=== PATIENT | female | born 1960 | race Caucasian/White ===

== ENCOUNTER 2020-02-24 20:32 | Emergency (ER) | payer OTHER ==
[~2020-02-24 20:32] MED LIST: CEPH500C PO; DAPS25TA2 PO
[2020-03-03] MEDS ORDERED: CEFD300C3 PO (11:09)
[2020-03-03] MEDS ORDERED: PRED10TA22 PO (11:09)
== END 2020-02-24 20:49 | disposition left against medical advice (07) ==
LOC: EDUNIT# 20:32 → ER 20:33
DX: R07.9 Chest pain, unspecified (principal); R03.0 Elevated blood-pressure reading, without diagnosis of hypertension

== ENCOUNTER 2020-03-02 14:38 | Inpatient (IN) | payer SELFPAY ==
[~2020-03-02] VITALS: Ht 167.7 cm; Wt 85.9 kg
[2020-03-02] MEDS ORDERED: RT-ALBUTEROL/IPRATROPIUM 3 ML (DUONEB) VIAL INH ONE (14:45)
--- NOTE | 2020-03-02 14:48 | ED Chest Pain ---
General Stated Complaint: CHEST PAIN Source: patient Exam Limitations: no limitations History of Present Illness Date Seen by Provider: Mar 02, 2020 Time Seen by Provider: 14:45 Initial Comments To ER with c/o chest pain and shortness of breath. SOB began this morning. She then developed chest pain and diaphoresis and anxiety. Has a history of NON oxygen dependent COPD, very heavy smoker. Ems arrived, BP 180 systolic and rated chest pain 8/10. Gave 4 baby aspirin and 1 sl nitro which resolved the chest pain. Initial room air O2 sat mid 90% range. Also reports some epigastric abdominal pain ongoing for a few weeks that prevents her from being able take a deep breath. Timing/Duration: changing over time Severity/Quality: moderate Location: central Radiation: no radiation Activities at Onset: none ASA po MARINE STEAM FITTER: No NTG SL MARINE STEAM FITTER: No Associated Symptoms: No fever/chills; shortness of breath Allergies and Home Medications Allergies Coded Allergies: No Known Drug Allergies (Unverified , 03/02/20) Home Medications Cephalexin 500 Mg Capsule, 500 MG PO TID Prescribed by: CARLOS DAVID on 04/30/162031 Dapsone 25 Mg Tablet, 50 MG PO BID Prescribed by: CARLOS DAVID on 04/30/162031 Patient Home Medication List Home Medication List Reviewed: Yes Review of Systems Review of Systems Constitutional: see HPI; No chills, No fever EENTM: No Symptoms Reported Respiratory: See HPI; Denies Cough; Shortness of Air, Wheezing Cardiovascular: See HPI, Chest Pain Gastrointestinal: No Symptoms Reported Genitourinary: No Symptoms Reported Musculoskeletal: no symptoms reported Skin: no symptoms reported Psychiatric/Neurological: No Symptoms Reported Endocrine: No Symptoms Reported Hematologic/Lymphatic: No Symptoms Reported Past Gjlqitd-Ufmcru-Hubnrf Hx Patient Social History Recent Hopitalizations: No Past Medical History Reproductive Disorders: No Family Medical History No Pertinent Family Hx Physical Exam Vital Signs Vital Signs - First Documented 03/02/20 14:38 Temp 36.8 Pulse 85 Resp 14 B/P (MAP) 139/104 (116) Pulse Ox 99 O2 Delivery Nasal Cannula O2 Flow Rate 5.0 Capillary Refill : Height, Weight, BMI Height: 5'6" Weight: 88lbs. 9oz. 40.258804mt; BMI Method:Stated General Appearance: No Apparent Distress, WD/WN, Chronically ill, Thin HEENT: PERRL/EOMI, TMs Normal Neck: Full Range of Motion, Normal Inspection Respiratory: No Accessory Muscle Use, No Respiratory Distress, Decreased Breath Sounds, Wheezing Cardiovascular: Regular Rate, Rhythm, Normal Peripheral Pulses Gastrointestinal: Normal Bowel Sounds, Soft, Tenderness (epigastric) Neurologic/Psychiatric: Alert, Oriented x3 Skin: Normal Color, Warm/Dry Other comments Still no chest pain here. Progress/Results/Core Measures Results/Orders Lab Results Laboratory Tests Test 03/02/20 14:48 03/02/20 15:38 Range/Units White Blood Count 8.5 4.3-11.0 10^3/uL Red Blood Count 5.79 4.35-5.85 10^6/uL Hemoglobin 19.9 H 11.5-16.0 G/DL Hematocrit 55 H 35-52 % Mean Corpuscular Volume 95 80-99 FL Mean Corpuscular Hemoglobin 34 25-34 PG Mean Corpuscular Hemoglobin Concent 36 32-36 G/DL Red Cell Distribution Width 12.8 10.0-14.5 % Platelet Count 277 130-400 10^3/uL Mean Platelet Volume 9.3 7.4-10.4 FL Neutrophils (%) (Auto) 74 42-75 % Lymphocytes (%) (Auto) 12 12-44 % Monocytes (%) (Auto) 13 H 0-12 % Eosinophils (%) (Auto) 0 0-10 % Basophils (%) (Auto) 1 0-10 % Neutrophils # (Auto) 6.3 1.8-7.8 X 10^3 Lymphocytes # (Auto) 1.0 1.0-4.0 X 10^3 Monocytes # (Auto) 1.1 H 0.0-1.0 X 10^3 Eosinophils # (Auto) 0.0 0.0-0.3 10^3/uL Basophils # (Auto) 0.1 0.0-0.1 10^3/uL Prothrombin Time 13.6 12.2-14.7 SEC INR Comment 1.0 0.8-1.4 Activated Partial Thromboplast Time 29 24-35 SEC Sodium Level 117 *L 135-145 MMOL/L Potassium Level 5.2 H 3.6-5.0 MMOL/L Chloride Level 82 L 98-107 MMOL/L Carbon Dioxide Level 25 21-32 MMOL/L Anion Gap 10 5-14 MMOL/L Blood Urea Nitrogen 8 7-18 MG/DL Creatinine 0.57 L 0.60-1.30 MG/DL Estimat Glomerular Filtration Rate > 60 BUN/Creatinine Ratio 14 Glucose Level 121 H 70-105 MG/DL Calcium Level 8.5 8.5-10.1 MG/DL Corrected Calcium 8.7 8.5-10.1 MG/DL Magnesium Level 1.7 1.6-2.4 MG/DL Total Bilirubin 1.2 H 0.1-1.0 MG/DL Aspartate Amino Transf (AST/SGOT) 26 5-34 U/L Alanine Aminotransferase (ALT/SGPT) 28 0-55 U/L Alkaline Phosphatase 103 40-136 U/L Myoglobin 46.0 10.0-92.0 NG/ML Troponin I < 0.028 <0.028 NG/ML Total Protein 6.4 6.4-8.2 GM/DL Albumin 3.8 3.2-4.5 GM/DL Lipase 18 8-78 U/L Blood Gas Puncture Site R RAD Blood Gas Patient Temperature 37.1 Arterial Blood pH 7.44 H 7.37-7.43 Arterial Blood Partial Pressure CO2 38 35-45 MMHG Arterial Blood Partial Pressure O2 86 79-93 MMHG Arterial Blood HCO3 25 23-27 MMOL/L Arterial Blood Total CO2 26.5 21.0-31.0 MMOL/L Arterial Blood Oxygen Saturation 97 94-100 % Arterial Blood Base Excess 1.7 -2.5-2.5 MMOL/L Daniel Test YES-POS Blood Gas Ventilator Setting NO Blood Gas Inspired Oxygen 2L My Orders Orders - SEBASTIÁN FIGUEROA APRN Cbc With Automated Diff (03/02/20 14:44) Magnesium (03/02/20 14:44) Chest 1 View, Ap/Pa Only (03/02/20 14:44) Ekg Tracing (03/02/20 14:44) Comprehensive Metabolic Panel (03/02/20 14:44) Myoglobin Serum (03/02/20 14:44) Protime With Inr (03/02/20 14:44) Partial Thromboplastin Time (03/02/20 14:44) O2 (03/02/20 14:44) Monitor-Rhythm Ecg Trace Only (03/02/20 14:44) Lipid Panel (03/03/20 06:00) Ed Iv/Invasive Line Start (03/02/20 14:44) Troponin I (03/02/20 14:44) Albuterol/Ipra Inhalation Soln (Duoneb I (03/02/20 14:45) Svn Small Volume Nebulizer (03/02/20 14:44) Methylprednisolone Sod Succ (Solu-Medrol (03/02/20 15:30) Arterial Blood Gas (03/02/20 15:39) Fentanyl Injection (Sublimaze Injection (03/02/20 15:45) Lipase (03/02/20 15:39) Ct Abdomen/Pelvis W (03/02/20 15:39) Sodium Urine Random (03/02/20 15:47) Osmolality Urine (03/02/20 15:47) Ua Culture If Indicated (03/02/20 15:47) Iohexol Injection (Omnipaque 350 Mg/Ml 1 (03/02/20 16:00) Received Contrast (Hold Metformin- Contr (03/02/20 16:00) Ns (Ivpb) (Sodium Chloride 0.9% Ivpb Bag (03/02/20 16:00) Ondansetron Injection (Zofran Injectio (03/02/20 16:15) Ondansetron Injection (Zofran Injectio (03/02/20 16:02) Promethazine Injection (Phenergan Injec (03/02/20 16:45) Medications Given in ED Current Medications Medications Dose Ordered Sig/Mark Route Start Time Stop Time Status Last Admin Dose Admin Albuterol/ Ipratropium 3 ml ONCE ONCE INH 03/02/20 14:45 03/02/20 14:46 DC 03/02/20 15:04 3 ML Fentanyl Citrate 50 mcg ONCE ONCE IVP 03/02/20 15:45 03/02/20 15:46 DC 03/02/20 16:06 50 MCG Iohexol 100 ml ONCE ONCE IV 03/02/20 16:00 03/02/20 16:02 DC 03/02/20 16:25 66 ML Methylprednisolone Sodium Succinate 125 mg ONCE ONCE IVP 03/02/20 15:30 03/02/20 15:31 DC 03/02/20 15:37 125 MG Ondansetron HCl 8 mg ONCE ONCE IVP 03/02/20 16:15 03/02/20 16:16 DC 03/02/20 16:06 8 MG Promethazine HCl 12.5 mg ONCE ONCE IVP 03/02/20 16:45 03/02/20 16:46 DC 03/02/20 16:48 12.5 MG Sodium Chloride 100 ml ONCE ONCE IV 03/02/20 16:00 03/02/20 16:02 DC 03/02/20 16:25 80 ML Vital Signs/I&O 03/02/20 03/02/20 03/02/20 03/02/20 14:38 14:38 14:38 15:04 Temp 36.8 Pulse 85 Resp 14 B/P (MAP) 139/104 (116) Pulse Ox 99 99 99 O2 Delivery Nasal Cannula Nasal Cannula Nasal Cannula Nasal Cannula O2 Flow Rate 5.0 5.00 5.00 5.00 03/02/20 15:12 Pulse Ox 97 O2 Delivery Room Air O2 Flow Rate 0 Departure Communication (Admissions) Time/Spoke to Admitting Phy: 16:[address] Harris, will admit, fluid restricted, IV normal saline, consult to surgery for the epigastric pain. Impression Primary Impression: COPD exacerbation Additional Impressions: Upper abdominal pain Hyponatremia Disposition: ADMITTED INPATIENT Condition: Stable Admissions Decision to Admit Reason: Admit from ER (General) Decision to Admit/Date: Mar 02, 2020 Time/Decision to Admit Time: 16:02 Departure-Patient Inst. Referrals: JANET HINES MD (PCP/Family) Primary Care Physician SEBASTIÁN FIGUEROA APRN Mar 02, 2020 14:47
[2020-03-02 15:03] LABS: BASOPHILS # (AUTO) 0.1 10^3/uL (0.0-0.1); BASOPHILS % (AUTO) 1 % (0-10); EOSINOPHILS % (AUTO) 0 % (0-10); HEMATOCRIT 55 % (35-52); HEMOGLOBIN 19.9 G/DL (11.5-16.0); LYMPHOCYTES % (AUTO) 12 % (12-44); MEAN CORPUSCULAR HEMOGLOBIN 34 PG (25-34); MEAN CORPUSCULAR HGB CONC 36 G/DL (32-36); MEAN CORPUSCULAR VOLUME 95 FL (80-99); MEAN PLATELET VOLUME 9.3 FL (7.4-10.4); MONOCYTES # (AUTO) 1.1 X 10^3 (0.0-1.0); MONOCYTES % (AUTO) 13 % (0-12); NEUTROPHILS # (AUTO) 6.3 X 10^3 (1.8-7.8); NEUTROPHILS % (AUTO) 74 % (42-75); PLATELET COUNT 277 10^3/uL (130-400); RED CELL DISTRIBUTION WIDTH 12.8 % (10.0-14.5); WHITE BLOOD COUNT 8.5 10^3/uL (4.3-11.0)
[2020-03-02 15:13] LABS: PROTHROMBIN TIME PATIENT 13.6 SEC (12.2-14.7)
[2020-03-02 15:27] LABS: ALANINE AMINOTRANSFERASE 28 U/L (0-55); ALBUMIN 3.8 GM/DL (3.2-4.5); ALKALINE PHOSPHATASE 103 U/L (40-136); BILIRUBIN,TOTAL 1.2 MG/DL (0.1-1.0); BUN/CREATININE RATIO 14; CALCIUM 8.5 MG/DL (8.5-10.1); CARBON DIOXIDE 25 MMOL/L (21-32); CHLORIDE 82 MMOL/L (98-107); CREATININE SERUM 0.57 MG/DL (0.60-1.30); GFR ESTIMATED > 60; GLUCOSE 121 MG/DL (70-105); MAGNESIUM 1.7 MG/DL (1.6-2.4); POTASSIUM 5.2 MMOL/L (3.6-5.0); TOTAL PROTEIN 6.4 GM/DL (6.4-8.2)
[2020-03-02] MEDS ORDERED: methylPREDNISolone 125 MG (Solu-MEDROL) VIAL IVP ONE (15:30)
[2020-03-02 15:31] LABS: SODIUM 117 MMOL/L (135-145)
[2020-03-02 15:44] LABS: ABG BASE EXCESS 1.7 MMOL/L (-2.5-2.5); ABG OXYGEN SATURATION 97 % (94-100); ABG PCO2 38 MMHG (35-45); ABG PH 7.44 (7.37-7.43); ABG PO2 86 MMHG (79-93); ABG TCO2 26.5 MMOL/L (21.0-31.0)
[2020-03-02 15:45] LABS: ALLENS TEST YES-POS; INSPIRED O2 2L; PATIENT TEMP 37.1; VENTILATOR NO
[2020-03-02] MEDS ORDERED: fentaNYL INJECTION 100 MCG/2 ML AMP IVP ONE (15:45)
--- NOTE | 2020-03-02 15:53 | Diagnostic Imaging Report ---
INDICATION: Chest pain. TIME OF EXAM: 3:27 PM. COMPARISON: No prior studies are available for comparison. FINDINGS: The heart size is normal. The lungs are hyperinflated, consistent with COPD. Nodular densities overlie the lung bases bilaterally, consistent with nipple shadows. No infiltrates are seen. There is no effusion or pneumothorax. IMPRESSION: COPD. No acute feature is detected. Dictated by: Dictated on workstation # [id number]
[2020-03-02] MEDS ORDERED: NS 100 ML (IVPB) BAG IV ONE (16:00)
[2020-03-02] MEDS ORDERED: IOHEXOL 350 MG/ML 100 ML (OMNIPAQUE 350) VIAL IV ONE (16:00)
[2020-03-02] MEDS ORDERED: HOLD METFORMIN - RECEIVED CONTRAST 20 ML VIAL IV SCH (16:00)
[2020-03-02] MEDS ORDERED: ONDANSETRON 4 MG/2 ML (SDV) Z0FRAN ONE (16:02)
[2020-03-02] MEDS ORDERED: ONDANSETRON 4 MG/2 ML (SDV) Z0FRAN IVP ONE (16:15)
[2020-03-02] MEDS ORDERED: PROMETHAZINE INJ 25 MG/ML (PHENERGAN) AMP IVP ONE (16:45)
--- NOTE | 2020-03-02 16:57 | Diagnostic Imaging Report ---
PROCEDURE: CT abdomen and pelvis with contrast. TECHNIQUE: Multiple contiguous axial images were obtained through the abdomen and pelvis after administration of intravenous contrast. Auto Exposure Controls were utilized during the CT exam to meet ALARA standards for radiation dose reduction. INDICATION: Epigastric abdominal pain, nausea, and vomiting. COMPARISON: None available. FINDINGS: LOWER THORAX: Emphysematous changes are noted in the visualized lung bases without acute or suspicious finding. The visualized heart is normal in size. LIVER: Normal. GALLBLADDER: Normal CT appearance. BILE DUCTS: No biliary ductal dilatation. SPLEEN: Normal. PANCREAS: Normal. No pancreatic ductal dilatation. ADRENAL GLANDS: No nodules. KIDNEYS AND URETERS: No hydronephrosis. Subcentimeter renal hypodensity, too small to characterize, but likely representing a cyst. The kidneys enhance symmetrically No suspicious mass. Mild cortical irregularity in both kidneys likely reflects areas of scarring. Punctate calcifications in the lower pole of the left kidney likely reflect renal vascular calcifications or punctate nonobstructing stones. STOMACH AND BOWEL: Stomach is physiologically-distended. No bowel obstruction. No inflammatory changes. APPENDIX: Not visualized. No pericecal inflammation. PELVIC ORGANS/BLADDER: Bladder is normal. Uterus is normal in CT appearance. No adnexal mass. PERITONEUM AND RETROPERITONEUM: No pneumoperitoneum. No abdominal free fluid or loculated collection. LYMPH NODES: No lymphadenopathy. VESSELS: Moderate atherosclerotic calcification. Abdominal aorta is nonaneurysmal. Incidental note is made of a retroaortic left renal vein, a normal anatomic variant. There is reflux of contrast into the hepatic veins, possibly reflecting right heart failure. ABDOMINAL WALL: Unremarkable. BONES: Multilevel degenerative changes involve the spine. No acute osseous abnormality. IMPRESSION: No acute abdominal or pelvic pathology. No findings to account for the patient's symptoms. Chronic and incidental findings are detailed above. Dictated by: Dictated on workstation # [id number]
--- NOTE | 2020-03-02 17:35 | NUR ---
Contacted daughter, Baylee, regarding pt report et admission to 507. Emmy voices no further questions or concerns at this time. ([phone])
[2020-03-02 17:54] VITALS: BP 118/81
[2020-03-02] MEDS ORDERED: PROMETHAZINE INJ 25 MG/ML (PHENERGAN) AMP IVP PRN (18:00)
[2020-03-02] MEDS ORDERED: fentaNYL INJECTION 100 MCG/2 ML AMP INJ PRN (18:00)
[2020-03-02] MEDS: NS IV 1000 ML 1,000 ML IV SCH (18:08)
[2020-03-02] MEDS: cefTRIAXone 1,000 MG/SWFI 10 ML IV PUSH IV SCH ×2 (18:10)
[2020-03-02] MEDS ORDERED: CATHETER FLUSH 10 ML SYR IV PRN (18:15)
[2020-03-02] MEDS ORDERED: fentaNYL INJECTION 100 MCG/2 ML AMP IV PRN (18:15)
[2020-03-02] MEDS ORDERED: ENOXAPARIN 30 MG/0.3 ML (LOVENOX) SYR SC SCH (19:04)
[2020-03-02 20:00] VITALS: BP 98/63
[2020-03-02] MEDS ORDERED: ONDANSETRON 4 MG (ZOFRAN) ORAL DISSOLVE TAB PO PRN (22:00)
[2020-03-02] MEDS ORDERED: ACETAMINOPHEN 500 MG TAB (TYLENOL) PO PRN (22:00)
[2020-03-02] MEDS ORDERED: LOPERAMIDE 2 MG (IMODIUM) TABLET PO PRN (22:00)
[2020-03-02] MEDS ORDERED: DOCUSATE SODIUM 100 MG (COLACE) CAP PO PRN (22:00)
[2020-03-02] MEDS ORDERED: ONDANSETRON 4 MG/2 ML (SDV) Z0FRAN IVP PRN (22:00)
[2020-03-02] MEDS ORDERED: CALCIUM CARBONATE 500 MG (TUMS) TAB.CHEW PO PRN (22:00)
[2020-03-02] MEDS ORDERED: diphenhydrAMINE 25 MG TAB (BENADRYL) PO PRN (22:00)
[2020-03-02] MEDS ORDERED: MELATONIN 3 MG TABLET PO PRN (22:00)
[2020-03-02] MEDS ORDERED: LACTULOSE SYRUP 10GM/15ML (ENULOSE) 30ML UDC PO PRN (22:00)
[2020-03-02] MEDS ORDERED: ALPRAZolam 0.25 MG (XANAX) TAB PO PRN (22:00)
[2020-03-02] MEDS ORDERED: HYDROcodone/APAP 5 MG/325 MG (LORTAB) TAB PO PRN (22:00)
[2020-03-02] MEDS ORDERED: BISACODYL 10 MG SUPP (DULCOLAX) PR PRN (22:00)
--- NOTE | 2020-03-02 22:07 | CONSULTATION REPORT ---
DATE OF SERVICE: 03/02/2020 ATTENDING PRIMARY CARE PHYSICIAN: Cesario Fritz MD ADMITTING PHYSICIAN: Dr. Harris. HISTORY OF PRESENT ILLNESS: The patient is a 59-year-old female who presented to the Emergency Department with worsening shortness of breath as well as epigastric pain. She reports that she has had the epigastric pain for the past few weeks, which has worsened and she feels that this may have also increased her shortness of breath. She does have a significant history of COPD as well as a longstanding history of smoking. Upon evaluation, she was also found to be hyponatremic with a sodium of 117, and a potassium 5.2. A CT scan was performed, which was mostly unremarkable; however, there was a distended gallbladder. She reports that she also has had some issues with reflux in the past as well. PAST MEDICAL HISTORY: COPD, hyponatremia. PAST SURGICAL HISTORY: None. ALLERGIES: No known drug allergies. MEDICATIONS: Cephalexin, dapsone. SOCIAL HISTORY: Positive smoke 50 pack years. Negative alcohol. FAMILY HISTORY: Noncontributory. VITAL SIGNS: Temperature 36.8, blood pressure 139/104, pulse 85, respirations 14, pulse ox 99% on 5 liters nasal cannula. REVIEW OF SYSTEMS: This is a well-nourished female, currently in no acute distress. She is experiencing exertional shortness of breath, not with supplemental oxygen. No new cough or sputum production. No nausea, vomiting with epigastric burning sensation as well as crampy pain. History of constipation, no red blood per rectum, no dark tarry stools. No fever, chills, no recent inadvertent weight loss. All other review of systems negative. PHYSICAL EXAMINATION: CHEST: Distant breath sounds and scattered wheezes bilaterally. HEART: Regular, no murmurs. EXTREMITIES: No lower extremity edema, negative Homans sign. HEENT: No scleral icterus. NECK: No cervical lymphadenopathy. ABDOMEN: Soft, nondistended. There is mild discomfort in the epigastric region as well as the right upper abdominal quadrant. No peritoneal signs. No hernias. SKIN: Warm, dry. LABORATORY DATA: WBC 8.5, hemoglobin , hematocrit 55, platelets 277, BUN 8, creatinine 0.57, total bilirubin 1.2. ASSESSMENT AND PLAN: A 59-year-old female with exacerbation of chronic obstructive pulmonary disease. She has also developed epigastric pain and a distended gallbladder detected on CT scan. She will be admitted by internal medicine for correction of what appears to be dehydration as well as hyponatremia and hyperkalemia, which will need to be corrected. She will also need continued respiratory support and diuresis for her exacerbation of COPD. We will also follow up with the epigastric pain with possible upper endoscopy as well as an ultrasound of the gallbladder. If no stones or sludge identified on ultrasound, this may represent a biliary dyskinesia and may need further workup with a HIDA scan and evaluation of an ejection fraction. Job ID: [id number] DocumentID: [id number] Dictated Date: 03/02/2020 19:14:18 [place] Date: 03/02/2020 22:07:02 Dictated By: YG TINSLEY MD
[2020-03-02] MEDS: methylPREDNISolone 40 MG/ML (Solu-MEDROL) VIAL IV SCH (22:25)
[2020-03-02 23:07] VITALS: BP 100/69
[2020-03-03 03:06] VITALS: BP 118/83
[2020-03-03 04:07] LABS: BASOPHILS % (AUTO) 0 % (0-10); EOSINOPHILS % (AUTO) 0 % (0-10); HEMATOCRIT 54 % (35-52); HEMOGLOBIN 18.9 G/DL (11.5-16.0); LYMPHOCYTES # (AUTO) 0.4 X 10^3 (1.0-4.0); LYMPHOCYTES % (AUTO) 7 % (12-44); MEAN CORPUSCULAR HEMOGLOBIN 34 PG (25-34); MEAN CORPUSCULAR HGB CONC 35 G/DL (32-36); MEAN CORPUSCULAR VOLUME 96 FL (80-99); MEAN PLATELET VOLUME 9.8 FL (7.4-10.4); MONOCYTES # (AUTO) 0.2 X 10^3 (0.0-1.0); MONOCYTES % (AUTO) 3 % (0-12); NEUTROPHILS % (AUTO) 90 % (42-75); PLATELET COUNT 274 10^3/uL (130-400); RED CELL DISTRIBUTION WIDTH 12.7 % (10.0-14.5); WHITE BLOOD COUNT 5.6 10^3/uL (4.3-11.0)
[2020-03-03 04:23] LABS: ALANINE AMINOTRANSFERASE 22 U/L (0-55); ALBUMIN 3.3 GM/DL (3.2-4.5); ALKALINE PHOSPHATASE 86 U/L (40-136); BILIRUBIN,TOTAL 0.7 MG/DL (0.1-1.0); BUN/CREATININE RATIO 25; CALCIUM 8.3 MG/DL (8.5-10.1); CARBON DIOXIDE 25 MMOL/L (21-32); CHLORIDE 86 MMOL/L (98-107); CHOLESTEROL 178 MG/DL (< 200); CREATININE SERUM 0.89 MG/DL (0.60-1.30); GFR ESTIMATED > 60; GLUCOSE 141 MG/DL (70-105); HDL CHOLESTEROL 87 MG/DL (40-60); POTASSIUM 4.5 MMOL/L (3.6-5.0); TOTAL PROTEIN 5.8 GM/DL (6.4-8.2); TRIGLYCERIDES 76 MG/DL (<150); VLDL CHOLESTEROL 15 MG/DL (5-40)
[2020-03-03 04:30] VITALS: BP 100/69
[2020-03-03 04:45] LABS: SODIUM 122 MMOL/L (135-145)
[2020-03-03] MEDS ORDERED: RT-ALBUTEROL/IPRATROPIUM 3 ML (DUONEB) VIAL INH PRN (04:45)
[2020-03-03 05:19] LABS: BAND NEUTROPHILS 4 %; LYMPHOCYTES % (MANUAL) 7 %; MONOCYTES % (MANUAL) 3 %; NEUTROPHILS % (MANUAL) 86 %
[2020-03-03] MEDS: methylPREDNISolone 40 MG/ML (Solu-MEDROL) VIAL IV SCH (05:58)
[2020-03-03] MEDS: NS IV 1000 ML 1,000 ML IV SCH (06:47)
[2020-03-03 08:00] VITALS: BP 104/78
[2020-03-03] MEDS ORDERED: RT-ALBUTEROL/IPRATROPIUM 3 ML (DUONEB) VIAL INH SCH (08:00)
[2020-03-03] MEDS: cefTRIAXone 1,000 MG/SWFI 10 ML IV PUSH IV SCH ×2 (08:07)
[2020-03-03] MEDS ORDERED: BUDE10.2 IH (08:36)
[2020-03-03] MEDS ORDERED: AMLO5TAB9 PO (08:36)
[2020-03-03] MEDS ORDERED: PANT20TA2 PO (08:36)
[2020-03-03] MEDS ORDERED: IBUP-2185 PO (08:36)
[2020-03-03] MEDS ORDERED: ASPI-983 PO (08:36)
[2020-03-03] MEDS ORDERED: PROP20TA5 PO (08:36)
--- NOTE | 2020-03-03 08:37 | NUR ---
SPOKE WITH THE PT AND CALLED [facility] TO COMPLETE THE MED REC PT HAS PROPRANOLOL AND PANTOPRAZOLE WITH HER PERSONAL ITEMS 02-23-2020 AMLODIPINE 5MG #30/30DS 02-23-2020 PANTOPRAZOLE 20MG #30/30DS 02-23-2020 ASPIRIN EC 81MG #100/100DS 02-29-2020 PROPRANOLOL 10MG #60/30DS OTC MEDS: IBUPROFEN PRN
[2020-03-03] MEDS ORDERED: PROP10TA8 PO (08:39)
[2020-03-03] MEDS ORDERED: SENNA W/DOCUSATE (SENOKOT S) TABLET PO SCH (09:00)
--- NOTE | 2020-03-03 09:10 | History & Physical-Hospitalist ---
SERGO DRIVER MED STUDENT 03/03/20 0910: History of Present Illness HPI/Chief Complaint CC: chest pain HPI: 59 yo F presents with chest pain. pain started yesterday afternoon (03/02/20). pt is unable to describe the pain. pt stated that pain was primarily at L anterior chest and radiated into the L scapula. pt reported that during this pain her pulse was elevated. Source: patient Exam Limitations: no limitations Date Seen 03/03/20 Attending Physician Lexus Harris Daniel J MD Referring Physician Date of Admission Mar 02, 2020 at 16:55 Home Medications & Allergies Home Medications Reviewed patient Home Medication Reconciliation performed by pharmacy medication reconciliations machine packaging technician and/or nursing. Patients Allergies have been reviewed. no known drug allergies Allergies Allergies Coded Allergies No Known Drug Allergies (Unverified03/02/20) Past Iedyrgk-Vadlrn-Alefno Hx Patient Social History Employed/Student: retired Alcohol Use: Occasionally Uses Number of Drinks Today: 0 Alcohol Beverage of Choice: Beer Recreational Drug Use: No Smoking Status: Current Someday Smoker Type Used: Cigarettes Contact w/other who traveled: No Recent Hopitalizations: No Recent Infectious Disease Expo: No Past Medical History Surgeries: Section Respiratory: COPD Currently Using CPAP: No Currently Using BIPAP: No Cardiac: Hypertension Reproductive: No History of Blood Disorders: No Family History No Pertinent Family Hx Cannot recall family history Review of Systems Constitutional: No chills, No fever Respiratory: cough; No short of breath, No wheezing Cardiovascular: chest pain; No palpitations Gastrointestinal: abdominal pain (RLQ LLQ); No nausea, No vomiting Physical Exam Physical Exam Vital Signs Vital Signs - First Documented 03/02/20 03/03/20 14:38 04:30 Temp 36.8 Pulse 85 Resp 14 B/P (MAP) 139/104 (116) Pulse Ox 99 O2 Delivery Nasal Cannula O2 Flow Rate 5.0 FiO2 21 Capillary Refill : Less Than 3 Seconds Height, Weight, BMI Height: 5'6" Weight: 88lbs. 9oz. 40.207228kw; 13.72 BMI Method:Stated General Appearance: No Apparent Distress Neck: Non Tender; No Lymphadenopathy (L), No Lymphadenopathy (R) Respiratory: Chest Non Tender, Lungs Clear, Normal Breath Sounds, No Accessory Muscle Use, No Respiratory Distress Cardiovascular: Regular Rate, Rhythm, No Murmur Gastrointestinal: Non Tender, Soft Lymphatic: No Adenopathy Results Results/Procedures Labs Laboratory Tests 03/02/20 14:48 03/03/20 03:19 Patient resulted labs reviewed. Assessment/Plan Assessment and Plan Assessment chest pain, unspecified hyponatremia copd exacerbation right ventricular heart failure history of hypertension Plan Hospital Course 59 yo F presents to the ED on 03/02/20 with chest pain that radiates to the back. pt denies any chest pain on 03/03/20. pt educated on fluid restrictions for hyponatremia. pt to be discharged after gallbladder ultrasound. pt directed for follow up labs at primary care physician. Clinical Quality Measures AMI/AHF: ASA po Prior to arrival: No DVT/VTE Risk/Contraindication: Risk Factor Score Per Nursin RFS Level Per Nursing on Admit: 4+=Very High LEXUS HARRIS DO 03/03/20 2200: History of Present Illness HPI/Chief Complaint CC: AECOPD with hyponatremia HPI: This is a 59yoWF who was admitted to inpatient due to AECOPD with severe hyponatremia. Patient insistent on going home and will abide by fluid restriction and smoking cessation was counseled. Time Seen by a Provider: 10:00 Past Tghsrdh-Xfqiya-Bkqngc Hx Past Med/Social Hx: Reviewed Nursing Past Med/Soc Hx, Reviewed and Corrections made Patient Social History Marrital Status: single Employed/Student: retired Alcohol Use: Denies Use Smoking Status: Current Everyday Smoker Past Medical History Respiratory: COPD Review of Systems Constitutional: see HPI Physical Exam Physical Exam General Appearance: No Apparent Distress, Chronically ill Eyes: Right Eye Normal Inspection, Right Eye PERRL HEENT: PERRL/EOMI, TMs Normal, Normal ENT Inspection, Pharynx Normal, Moist Mucous Membranes Neck: Full Range of Motion, Normal Inspection, Non Tender Respiratory: Chest Non Tender, Lungs Clear, No Accessory Muscle Use, No Respiratory Distress, Decreased Breath Sounds Cardiovascular: Regular Rate, Rhythm, No Edema, No Gallop, No JVD, No Murmur, Normal Peripheral Pulses Gastrointestinal: Normal Bowel Sounds, No Organomegaly, No Pulsatile Mass, Non Tender, Soft Back: Normal Inspection, No CVA Tenderness, No Vertebral Tenderness Extremity: Normal Capillary Refill, Normal Inspection, Normal Range of Motion, Non Tender, No Calf Tenderness, No Pedal Edema Neurologic/Psychiatric: Alert, Oriented x3, No Motor/Sensory Deficits, Normal Mood/Affect Skin: Normal Color, Warm/Dry Lymphatic: No Adenopathy Assessment/Plan Admission Diagnosis Assessment: AECOPD Hyponatremia Smoker Plan: Fluid restriction Iv steroids Admission Status: Observation Diagnosis/Problems Diagnosis/Problems (1) COPD exacerbation Status: Acute (2) Hyponatremia Status: Acute Supervisory-Addendum Brief Verification & Attestation Participated in pt care: history, MDM, physical Personally performed: exam, history, MDM, supervision of care Care discussed with: Medical Student Procedures: n/a Results interpretation: Verified all documentation Verification and Attestation of Medical Student E/M Service A medical student performed and documented this service in my presence. I reviewed and verified all information documented by the medical student and made modifications to such information, when appropriate. I personally performed the physical exam and medical decision making. Lexus Harris, Mar 03, 2020,22:01 SER[employer] DRIVER MED STUDENT Mar 03, 2020 09:10 LEXUS HARRIS DO Mar 03, 2020 22:00
[2020-03-03] MEDS ORDERED: CEFD300C3 PO (11:09)
[2020-03-03] MEDS ORDERED: PRED10TA22 PO (11:09)
--- NOTE | 2020-03-03 11:11 | Discharge Summary ---
Discharge Summary Hospital Course Was the Problem List Reviewed?: Yes Hospital Course Date of Admission: Mar 02, 2020 at 16:55 Admission Diagnosis : Family Physician/Provider: Cesario Fritz MD Date of Discharge: 03/03/20 Discharge Diagnosis: AECOPD, Hyponatremia Hospital Course: Patient had a brief course after admitted for hyponatremia of 117 and AECOPD. Patient was placed on fluid restriction and placed on gentle NS IVF and sodium increased to 122 and patient was insistent on DC so she was DC in improved condition. Labs and Pending Lab Test: Laboratory Tests 03/02/20 14:48: White Blood Count 8.5, Red Blood Count 5.79, Hemoglobin 19.9H, Hematocrit 55H, Mean Corpuscular Volume 95, Mean Corpuscular Hemoglobin 34, Mean Corpuscular Hemoglobin Concent 36, Red Cell Distribution Width 12.8, Platelet Count 277, Mean Platelet Volume 9.3, Neutrophils (%) (Auto) 74, Lymphocytes (%) (Auto) 12, Monocytes (%) (Auto) 13H, Eosinophils (%) (Auto) 0, Basophils (%) (Auto) 1, Neutrophils # (Auto) 6.3, Lymphocytes # (Auto) 1.0, Monocytes # (Auto) 1.1H, Eosinophils # (Auto) 0.0, Basophils # (Auto) 0.1, Prothrombin Time 13.6, INR Comment 1.0, Activated Partial Thromboplast Time 29, Sodium Level 117*L, Potassium Level 5.2H, Chloride Level 82L, Carbon Dioxide Level 25, Anion Gap 10, Blood Urea Nitrogen 8, Creatinine 0.57L, Estimat Glomerular Filtration Rate > 60, BUN/Creatinine Ratio 14, Glucose Level 121H, Calcium Level 8.5, Corrected Calcium 8.7, Magnesium Level 1.7, Total Bilirubin 1.2H, Aspartate Amino Transf (AST/SGOT) 26, Alanine Aminotransferase (ALT/SGPT) 28, Alkaline Phosphatase 103, Myoglobin 46.0, Troponin I < 0.028, Total Protein 6.4, Albumin 3.8, Lipase 18 03/02/20 15:38: Blood Gas Puncture Site R RAD, Blood Gas Patient Temperature 37.1, Arterial Blood pH 7.44H, Arterial Blood Partial Pressure CO2 38, Arterial Blood Partial Pressure O2 86, Arterial Blood HCO3 25, Arterial Blood Total CO2 26.5, Arterial Blood Oxygen Saturation 97, Arterial Blood Base Excess 1.7, Daniel Test YES-POS, Blood Gas Ventilator Setting NO, Blood Gas Inspired Oxygen 2L 03/02/20 17:02: Troponin I < 0.028 03/03/20 03:19: White Blood Count 5.6, Red Blood Count 5.59, Hemoglobin 18.9H, Hematocrit 54H, Mean Corpuscular Volume 96, Mean Corpuscular Hemoglobin 34, Mean Corpuscular Hemoglobin Concent 35, Red Cell Distribution Width 12.7, Platelet Count 274, Mean Platelet Volume 9.8, Neutrophils (%) (Auto) 90H, Lymphocytes (%) (Auto) 7L, Monocytes (%) (Auto) 3, Eosinophils (%) (Auto) 0, Basophils (%) (Auto) 0, Neutrophils # (Auto) 5.0, Lymphocytes # (Auto) 0.4L, Monocytes # (Auto) 0.2, Eosinophils # (Auto) 0.0, Basophils # (Auto) 0.0, Sodium Level 122*L, Potassium Level 4.5, Chloride Level 86L, Carbon Dioxide Level 25, Anion Gap 11, Blood Urea Nitrogen 22H, Creatinine 0.89, Estimat Glomerular Filtration Rate > 60, BUN/Creatinine Ratio 25, Glucose Level 141H, Calcium Level 8.3L, Corrected Calcium 8.9, Total Bilirubin 0.7, Aspartate Amino Transf (AST/SGOT) 18, Alanine Aminotransferase (ALT/SGPT) 22, Alkaline Phosphatase 86, Total Protein 5.8L, Albumin 3.3, Neutrophils % (Manual) 86, Lymphocytes % (Manual) 7, Monocytes % (Manual) 3, Band Neutrophils 4, Triglycerides Level 76, Cholesterol Level 178, LDL Cholesterol Direct 74, VLDL Cholesterol 15, HDL Cholesterol 87H Home Meds Active Prednisone 10 Mg Tab.ds.pk 10 Mg PO DAILY Take 6 tabs(60mg)daily,decrease by 1 tab(10MG)daily. Cefdinir 300 Mg Capsule 300 Mg PO BID Reported Propranolol HCl 10 Mg Tablet 10 Mg PO BID Ibuprofen 200 Mg Capsule 400 Mg PO Q6H PRN Aspirin EC (Aspirin) 81 Mg Tablet.dr 81 Mg PO DAILY Amlodipine Besylate 5 Mg Tablet 5 Mg PO DAILY Protonix (Pantoprazole Sodium) 20 Mg Tablet.dr 20 Mg PO DAILY Symbicort 160-4.5 Mcg Inhaler (Budesonide/Formoterol Fumarate) 10.2 Gm Hfa.aer.ad 2 Puff IH BID Assessment/Pt Instructions [facility] in 1 week Discharge Planning: <30 minutes discharge planning Discharge Physical Examination Vital Signs Vital Signs Date Time Temp Pulse Resp B/P (MAP) Pulse Ox O2 Delivery O2 Flow Rate FiO2 03/03/20 09:00 Room Air 03/03/20 08:02 98 03/03/20 08:00 36.8 95 18 104/78 (87) 03/03/20 04:30 21 03/02/20 21:00 3.00 General Appearance: No Apparent Distress, WD/WN HEENT: PERRL/EOMI, TMs Normal, Normal ENT Inspection, Pharynx Normal, Moist Mucous Membranes Respiratory: Chest Non Tender, Lungs Clear, Normal Breath Sounds, No Accessory Muscle Use, No Respiratory Distress Cardiovascular: Regular Rate, Rhythm, No Edema, No Gallop, No JVD, No Murmur, Normal Peripheral Pulses Gastrointestinal: Normal Bowel Sounds, No Organomegaly, No Pulsatile Mass, Non Tender, Soft Extremity: Normal Capillary Refill, Normal Inspection, Normal Range of Motion, Non Tender, No Calf Tenderness, No Pedal Edema Skin: Normal Color, Warm/Dry Neurologic/Psychiatric: Alert, Oriented x3, No Motor/Sensory Deficits, Normal Mood/Affect Allergies: Coded Allergies: No Known Drug Allergies (Unverified , 03/02/20) Discharge Summary Date of Admission Mar 02, 2020 at 16:55 Date of Discharge Discharge Date: Mar 03, 2020 Clinical Quality Measures AMI/AHF: ASA po Prior to arrival: No DVT/VTE Risk/Contraindication: Risk Factor Score Per Nursin RFS Level Per Nursing on Admit: 4+=Very High STEPHANY MARTELL DO Mar 03, 2020 11:11
[2020-03-03 12:00] VITALS: BP 91/62
--- NOTE | 2020-03-03 12:17 | NUR ---
THIS NURSE NOTIFIED DR MARTELL PT DOES NOT WANT TO WAIT TO GET ABD US HERE IN THE HOSPITAL. PT HAS AN APPOINTMENT TOMORROW TO GET AN ULTRASOUND OF HER ABD AT THE CLINIC. DR MARTELL IS OKAY WITH PT GETTING SCAN TOMORROW AND GOING HOME TODAY. THIS NURSE ALSO CLARIFIED THAT THE PT IS TO GET LABS SATURDAY. THIS NURSE EDUCATED PT ON FOLLOW-UP TOMORROW AND GETTING LABS SATURDAY.
[2020-03-03 13:00] VITALS: BP 91/62
--- NOTE | 2020-03-03 13:00 | NUR ---
THIS NURSE EDUCATED PT ON DISCHARGE INSTRUCTIONS, FLUID RESTRICTION, AND HOME MEDICATIONS. PT STATED UNDERSTANDING.
== END 2020-03-03 13:15 | disposition home or self-care (01) | DRG 191 ==
LOC: EDUNIT# 14:42 → ER 14:44 → CSD 16:55
PROVIDERS: ADMIT Internal Medicine; ATTEND Internal Medicine
DX: J44.1 Chronic obstructive pulmonary disease with (acute) exacerbation (principal); E87.1 Hypo-osmolality and hyponatremia; F17.210 Nicotine dependence, cigarettes, uncomplicated; E86.0 Dehydration; E87.5 Hyperkalemia; R10.13 Epigastric pain; I10 Essential (primary) hypertension
CPT/HCPCS: 36415; 71045; 74177; 80053; 80061; 82805; 83690; 83735; 83874; 84484; 85007; 85025; 85027; 85610; 85730; 93005; 93041; 94640

== ENCOUNTER 2020-03-07 18:42 | Inpatient (IN) | payer OTHER ==
[~2020-03-07] VITALS: Ht 165.1 cm; Wt 42.1 kg
[~2020-03-07 18:42] MED LIST changes: +AMLO5TAB9 PO; +ASPI-983 PO; +BUDE10.2 IH; +CEFD300C3 PO; +IBUP-2185 PO; +PANT20TA2 PO; +PRED10TA22 PO; +PROP10TA8 PO; +PROP20TA5 PO
[2020-03-07] MEDS ORDERED: methylPREDNISolone 125 MG (Solu-MEDROL) VIAL IV STA (18:45)
[2020-03-07] MEDS ORDERED: RT-ALBUTEROL/IPRATROPIUM 3 ML (DUONEB) VIAL INH ONE (18:45)
--- NOTE | 2020-03-07 18:55 | ED General ---
General Chief Complaint: Cardiac/General Problems Stated Complaint: HYPERTENSION Nursing Triage Note: PT TO ROOM 07 VIA EMS WITH C/O HYPERTENSION. Nursing Sepsis Screen: No Definite Risk Source of Information: Patient, EMS, Old Records History of Present Illness Date Seen by Provider: Mar 07, 2020 Time Seen by Provider: 18:39 Initial Comments PT ARRIVES VIA EMS FROM HOME PT STATES SHE CALLED EMS FOR "MY BLOOD PRESSURE--I'VE BEEN DEALING WITH IT ALL DAY" --STATES BLOOD PRESSURE HAS BEEN HIGH ALL DAY--WAS 200/103, PER PT. INITIAL BP FOR EMS WAS 193/136 EMS GAVE 4 BABY ASPIRIN AND NTG X 1 FOR BLOOD PRESSURE--DOWN TO 153/104. PT STATES SHE TAKES LISINOPRIL FOR BLOOD PRESSURE AND DENIES ANY MISSED DOSES ( ALSO IS ON INDERAL ) --THIS IS NEW DX, AND HAS BEEN ON MEDICATIONS LESS THAN A MONTH PT DENIES CHEST PAIN PT HAS BEEN SHORT OF BREATH---HAS COPD AND HAS BEEN OUT OF HER SYMBICORT FOR UNKNOWN LENGTH OF TIME--STATES " DIDN'T GET A CHANCE TO FILL IT" --GOT FIRST INHALER "SAMPLE" FROM [facility] + ORTHOPNEA, BUT PT STATES THAT IS NORMAL FOR HER NO SWELLING IN LEGS/FEET NO FEVER/SWEATS/CHILLS NO SIGNIFICANT COUGH, OTHER THAN CHRONIC SMOKER'S COUGH. NO NAUSEA/VOMITING/DIARRHEA/ABDOMINAL PAIN NO HEADACHE NO DIZZINESS OR SYNCOPE STATES "I BEEN DEALING WITH THIS SINCE 4 AM" STATES SHE WAKES UP WITH HER PULSE RACING, AND THEN HER BLOOD PRESSURE IS REALLY HIGH STATES SHE HAS HAD A COUPLE OF CRACKERS, AND SOME BEER, AND COFFEE AND TEA TODAY--STATES "I DIDN'T HAVE TIME TO EAT BECAUSE I BEEN DEALING WITH THIS BLOOD PRESSURE ALL DAY" PT WAS ADMITTED 03/03/20 FOR HYPONATREMIA AND COPD EXACERBATION PT CONTINUES TO SMOKE HEAVILY PT ADMITS TO "1 BEER" TODAY PCP: [facility] Allergies and Home Medications Allergies Coded Allergies: No Known Drug Allergies (Unverified , 03/02/20) Home Medications Amlodipine Besylate 5 Mg Tablet, 5 MG PO DAILY, (Reported) Aspirin 81 Mg Tablet.dr, 81 MG PO DAILY, (Reported) Budesonide/Formoterol Fumarate 10.2 Gm Hfa.aer.ad, 2 PUFF IH BID, (Reported) Cefdinir 300 Mg Capsule, 300 MG PO BID Prescribed by: STEPHANY MARTELL on 03/03/201108 Ibuprofen 200 Mg Capsule, 400 MG PO Q6H PRN for PAIN-MILD (1-4), (Reported) Pantoprazole Sodium 20 Mg Tablet.dr, 20 MG PO DAILY, (Reported) Prednisone 10 Mg Tab.ds.pk, 10 MG PO DAILY Take 6 tabs(60mg)daily,decrease by 1 tab(10MG)daily. Prescribed by: STEPHANY MARTELL on 03/03/201108 Propranolol HCl 10 Mg Tablet, 10 MG PO BID, (Reported) Patient Home Medication List Home Medication List Reviewed: Yes Review of Systems Review of Systems Constitutional: no symptoms reported; No chills, No diaphoresis, No dizziness, No fever, No malaise, No weakness EENTM: no symptoms reported; No blurred vision Respiratory: see HPI, cough, dyspnea on exertion, orthopnea, short of breath Cardiovascular: see HPI; No chest pain, No edema, No palpitations, No syncope Gastrointestinal: no symptoms reported; No abdominal pain, No diarrhea, No nausea, No vomiting Genitourinary: no symptoms reported Musculoskeletal: no symptoms reported Skin: no symptoms reported Psychiatric/Neurological: No Symptoms Reported; Denies Headache, Denies Numbness, Denies Paresthesia, Denies Tingling, Denies Weakness Hematologic/Lymphatic: No Symptoms Reported Immunological/Allergic: no symptoms reported Past Hzofakl-Equsdz-Ngjfxi Hx Past Med/Social Hx: Reviewed and Corrections made Patient Social History Alcohol Use: Occasionally Uses Alcohol Beverage of Choice: Beer Recreational Drug Use: No Smoking Status: Current Everyday Smoker Type Used: Cigarettes Recent Foreign Travel: No Contact w/Someone Who Travel: No Recent Infectious Disease Expo: No Recent Hopitalizations: No Past Medical History Surgeries: Yes (C-SECITON X 2; APPY WITH LAST ; BTL 1992; LITHOTRIPSY X 2 ) Appendectomy, Section, Renal, Tubal Ligation Respiratory: Yes COPD Currently Using CPAP: No Currently Using BIPAP: No Cardiac: Yes Hypertension, Palpitations Neurological: No Reproductive Disorders: No Genitourinary: Yes (LITHOTRIPSY X 2 ) Kidney Stones Gastrointestinal: No Musculoskeletal: No Endocrine: No HEENT: No Cancer: No Psychosocial: No Integumentary: No Blood Disorders: No Family Medical History SOCIAL HISTORY: -ETOH--"2-3 BEERS" DAILY -DRUGS--DENIES -SMOKING-1 PPD PSH: - X 2 -BTL 1992 -APPENDECTOMY WITH LAST -LITHOTRIPSY X 2 Physical Exam Vital Signs Vital Signs - First Documented 03/07/20 03/07/20 18:44 18:55 Temp 36.8 Pulse 101 Resp 24 B/P (MAP) 166/123 (137) Pulse Ox 98 O2 Delivery Room Air O2 Flow Rate 2.00 Capillary Refill : Less Than 3 Seconds Height, Weight, BMI Height: 5'6" Weight: 88lbs. 9oz. [id number]; 13.00 BMI Method:Stated General Appearance: Cachetic, Other (TALKS NON-STOP IN FULL SENTENCES, BUT IS MILDLY DYSPNEIC, DOES NOT APPEAR TO BE IN ANY DISCOMFORT--STATES SHE IS BREATHING "NORMAL" REEKS OF CIGARETTES) HEENT: PERRL/EOMI Neck: Full Range of Motion, Normal Inspection, Non Tender, Supple; No Carotid Bruit, No JVD Respiratory: Accessory Muscle Use, Rales, Other (DIFFUSE WHEEZING BILATERALLY, RALES IN BILATERAL BASES. 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 Norm as Tested Skin: Normal Color, Warm/Dry; No Rash Progress/Results/Core Measures Suspected Sepsis Recent Fever Within 48 Hours: No Infection Criteria Present: None New/Unexplained Altered Menta: No Sepsis Screen: No Definite Risk SIRS Temperature: Pulse: 101 Respiratory Rate: 24 Laboratory Tests 03/07/20 19:16: White Blood Count 9.6 Blood Pressure 166 /123 Mean: 137 Laboratory Tests 03/07/20 19:16: Creatinine 0.56L, INR Comment 1.0, Platelet Count 303, Total Bilirubin 0.6 Results/Orders Lab Results Laboratory Tests Test 03/07/20 18:50 03/07/20 19:16 03/07/20 19:50 03/07/20 21:00 Range/Units Blood Gas Puncture Site RT RAD Blood Gas Patient Temperature 36.8 Arterial Blood pH 7.53 H 7.37-7.43 Arterial Blood Partial Pressure CO2 36 35-45 MMHG Arterial Blood Partial Pressure O2 44 L 79-93 MMHG Arterial Blood HCO3 32 H 23-27 MMOL/L Arterial Blood Total CO2 33.9 H 21.0-31.0 MMOL/L Arterial Blood Oxygen Saturation 94 94-100 % Arterial Blood Base Excess 8.0 H -2.5-2.5 MMOL/L Daniel Test POS Blood Gas Ventilator Setting NO Blood Gas Inspired Oxygen ROOM AIR White Blood Count 9.6 4.3-11.0 10^3/uL Red Blood Count 5.57 4.35-5.85 10^6/uL Hemoglobin 19.2 H 11.5-16.0 G/DL Hematocrit 53 H 35-52 % Mean Corpuscular Volume 96 80-99 FL Mean Corpuscular Hemoglobin 34 25-34 PG Mean Corpuscular Hemoglobin Concent 36 32-36 G/DL Red Cell Distribution Width 12.9 10.0-14.5 % Platelet Count 303 130-400 10^3/uL Mean Platelet Volume 9.0 7.4-10.4 FL Neutrophils (%) (Auto) 72 42-75 % Lymphocytes (%) (Auto) 20 12-44 % Monocytes (%) (Auto) 8 0-12 % Eosinophils (%) (Auto) 1 0-10 % Basophils (%) (Auto) 0 0-10 % Neutrophils # (Auto) 6.9 1.8-7.8 X 10^3 Lymphocytes # (Auto) 1.9 1.0-4.0 X 10^3 Monocytes # (Auto) 0.7 0.0-1.0 X 10^3 Eosinophils # (Auto) 0.1 0.0-0.3 10^3/uL Basophils # (Auto) 0.0 0.0-0.1 10^3/uL Prothrombin Time 13.1 12.2-14.7 SEC INR Comment 1.0 0.8-1.4 Activated Partial Thromboplast Time 29 24-35 SEC Sodium Level 125 *L 135-145 MMOL/L Potassium Level 4.7 3.6-5.0 MMOL/L Chloride Level 82 L 98-107 MMOL/L Carbon Dioxide Level 33 H 21-32 MMOL/L Anion Gap 10 5-14 MMOL/L Blood Urea Nitrogen 5 L 7-18 MG/DL Creatinine 0.56 L 0.60-1.30 MG/DL Estimat Glomerular Filtration Rate > 60 BUN/Creatinine Ratio 9 Glucose Level 84 70-105 MG/DL Calcium Level 8.8 8.5-10.1 MG/DL Corrected Calcium 9.1 8.5-10.1 MG/DL Magnesium Level 1.6 1.6-2.4 MG/DL Total Bilirubin 0.6 0.1-1.0 MG/DL Aspartate Amino Transf (AST/SGOT) 18 5-34 U/L Alanine Aminotransferase (ALT/SGPT) 19 0-55 U/L Alkaline Phosphatase 82 40-136 U/L Lactate Dehydrogenase 258 H 125-220 U/L Total Creatine Kinase 45 29-168 U/L Creatine Kinase MB 3.0 <6.6 NG/ML Myoglobin 42.0 10.0-92.0 NG/ML Troponin I < 0.028 <0.028 NG/ML C-Reactive Protein High Sensitivity 0.11 0.00-0.50 MG/DL B-Type Natriuretic Peptide 928.8 H <100.0 PG/ML Total Protein 6.0 L 6.4-8.2 GM/DL Albumin 3.6 3.2-4.5 GM/DL Procalcitonin 0.01 <0.10 NG/ML Serum Alcohol 17 H <10 MG/DL Urine Color YELLOW Urine Clarity CLEAR Urine pH 5.5 5-9 Urine Specific [place] <=1.005 1.016-1.022 Urine Protein NEGATIVE NEGATIVE Urine Glucose (UA) NEGATIVE NEGATIVE Urine Ketones NEGATIVE NEGATIVE Urine Nitrite NEGATIVE NEGATIVE Urine Bilirubin NEGATIVE NEGATIVE Urine Urobilinogen 0.2 < = 1.0 MG/DL Urine Leukocyte Esterase NEGATIVE NEGATIVE Urine RBC (Auto) NEGATIVE NEGATIVE Urine RBC 0-2 /HPF Urine WBC 0-2 /HPF Urine Squamous Epithelial Cells 2-5 /HPF Urine Crystals PRESENT H /LPF Urine Amorphous Sediment FEW ESTEFANIA URATES H /LPF Urine Bacteria TRACE /HPF Urine Casts NONE /LPF Urine Mucus NEGATIVE /LPF Urine Culture Indicated NO Urine Opiates Screen POSITIVE H NEGATIVE Urine Oxycodone Screen NEGATIVE NEGATIVE Urine Methadone Screen NEGATIVE NEGATIVE Urine Propoxyphene Screen NEGATIVE NEGATIVE Urine Barbiturates Screen NEGATIVE NEGATIVE Ur Tricyclic Antidepressants Screen NEGATIVE NEGATIVE Urine Phencyclidine Screen NEGATIVE NEGATIVE Urine Amphetamines Screen NEGATIVE NEGATIVE Urine Methamphetamines Screen NEGATIVE NEGATIVE Urine Benzodiazepines Screen POSITIVE H NEGATIVE Urine Cocaine Screen NEGATIVE NEGATIVE Urine Cannabinoids Screen NEGATIVE NEGATIVE My Orders Orders - DUSTIN BELL DO Ed Iv/Invasive Line Start (03/07/20 18:45) Ekg Tracing (03/07/20 18:45) O2 (03/07/20 18:45) Monitor-Rhythm Ecg Trace Only (03/07/20 18:45) Alcohol (03/07/20 18:45) Arterial Blood Gas (03/07/20 18:45) BNP (03/07/20 18:45) Cbc With Automated Diff (03/07/20 18:45) Comprehensive Metabolic Panel (03/07/20 18:45) Creatine Kinase (03/07/20 18:45) Creatine Kinase Mb (03/07/20 18:45) Drug Screen Stat (Urine) (03/07/20 18:45) Magnesium (03/07/20 18:45) Protime With Inr (03/07/20 18:45) Partial Thromboplastin Time (03/07/20 18:45) Ua Culture If Indicated (03/07/20 18:45) Myoglobin Serum (03/07/20 18:45) Troponin I (03/07/20 18:45) Chest 1 View, Ap/Pa Only (03/07/20 18:45) Albuterol/Ipra Inhalation Soln (Duoneb I (03/07/20 18:45) Dexamethasone Injection (Decadron Injec (03/07/20 18:45) Rt Request For Service (03/07/20 18:45) Methylprednisolone Sod Succ (Solu-Medrol (03/07/20 18:45) Svn Small Volume Nebulizer (03/07/20 18:45) Hydralazine Injection (Apresoline Inject (03/07/20 19:30) Metoprolol Succinate (Xl) Tab (Toprol Xl (03/07/20 19:30) Ed Iv/Invasive Line Start (03/07/20 20:05) Ns Iv 500 Ml (Sodium Chloride 0.9%) (03/07/20 20:05) Procalcitonin (Pct) (03/07/20:22) Hs C Reactive Protein (03/07/20:22) Erythrocyte Sedimentation Rate (8/17/20 20:22) LDH (03/07/20 20:22) Coronavirus Sars-Cov-2 So 2019 (03/07/20 20:22) Medications Given in ED Current Medications Medications Dose Ordered Sig/Mark Route Start Time Stop Time Status Last Admin Dose Admin Albuterol/ Ipratropium 3 ml ONCE ONCE INH 03/07/20 18:45 03/07/20 18:50 DC 03/07/20 19:17 3 ML Dexamethasone Sodium Phosphate 20 mg ONCE ONCE IH 03/07/20 18:45 03/07/20 18:50 DC 03/07/20 19:18 20 MG Hydralazine HCl 10 mg ONCE ONCE IV 03/07/20 19:30 03/07/20 19:31 DC 03/07/20 19:49 10 MG Metoprolol Succinate 100 mg ONCE ONCE PO 03/07/20 19:30 03/07/20 19:31 DC 03/07/20 19:49 100 MG Sodium Chloride 500 ml @ 0 mls/hr Q0M ONCE IV 03/07/20 20:05 03/07/20 20:06 DC 03/07/20 20:14 999 MLS/HR Vital Signs/I&O 03/07/20 03/07/20 03/07/20 03/07/20 18:44 18:55 19:22 21:25 Temp 36.8 Pulse 101 71 Resp 24 19 B/P (MAP) 166/123 (137) 98/70 Pulse Ox 98 100 97 O2 Delivery Room Air Nasal Cannula Nasal Cannula Nasal Cannula O2 Flow Rate 2.00 2.00 2.00 03/07/20 03/07/20 21:30 21:30 Temp 36.4 36.4 Pulse 74 74 Resp 20 20 B/P (MAP) 125/79 125/79 (94) Pulse Ox 92 92 O2 Delivery Nasal Cannula Nasal Cannula O2 Flow Rate 2.00 2.00 2.00 Capillary Refill : Less Than 3 Seconds Blood Pressure Mean: 137 Progress Note : Progress Note O2 SATS DOWN TO 85% ON ROOM AIR--UP TO 93% ON O2 AT 2L/NC AFTER NEB TREATMENT GIVEN SOLU-MEDROL AND NEB TREATMENTS WITH INCREASED AERATION, NO WHEEZING AND FAINT BIBASILAR RALES. PT GIVEN HYDRALAZINE IV AND TOPROL XL FOR BLOOD PRESSURE NO DETERIORATION IN PT'S CONDITION DURING ER STAY OF NOTE, AFTER REPORTING TO ME THAT SHE DID NOT HAVE A NEBULIZER, SHE REPORTED TO RESPIRATORY THERAPIST, THAT SHE HAS A NEBULIZER WITH AN UNKNOWN MEDICATION THAT SHE CAN TAKE EVERY 6 HOURS NEEDED--USED IT ONE TIME AT 10 AM TODAY. UDS + FOR OPIATES AND BENZODIAZEPINES--DO NOT SEE ANY RECORD OF PT BEING PRESCRIBED MEDICATIONS IN EITHER DRUG CATEGORY ECG Initial ECG Impression Date: Mar 07, 2020 Initial ECG Impression Time: 18:42 Initial ECG Rate: 97 Initial ECG Rhythm: Normal Sinus Initial ECG Impression: Nonspecific Changes Initial ECG Comparisson: Unchanged Diagnostic Imaging Comments CXR--PER RADIOLOGIST REPORT 1935 FINDINGS: The lung volumes are hyperexpanded. No focal consolidation is seen. No large pleural effusion or pneumothorax is seen. The cardiomediastinal silhouette is normal in size and contour. No acute osseous abnormality is seen. IMPRESSION: 1. Hyperexpanded lungs, which can be seen with COPD. No focal consolidations. If the patient is high risk for lung malignancy, consider further evaluation with CT chest. Reviewed: Reviewed by Me Departure Communication (Admissions) 2003--ATTEMPTING TO CONTACT DR. MONTERO, UNABLE TO LEAVE MESSAGE 2014--SPOKE WITH DR. MONTERO, ACCEPTS PT FOR ADMIT. ORDERS NOTED. Impression Primary Impression: COPD exacerbation Additional Impressions: Hypoxia Hyponatremia Elevated brain natriuretic peptide (BNP) level Uncontrolled hypertension Heavy smoker (more than 20 cigarettes per day) Daily consumption of alcohol Person under investigation for COVID-19 UDS POSITIVE FOR OPIATES AND BENZODIAZEPINES Disposition: ADMITTED INPATIENT Condition: Improved Admissions Decision to Admit Reason: Admit from ER (General) Decision to Admit/Date: Mar 07, 2020 Time/Decision to Admit Time: 20:00 Departure-Patient Inst. Referrals: JANET HINES MD (PCP/Family) Primary Care Physician DUSTIN BELL DO Mar 07, 2020 18:55
--- NOTE | 2020-03-07 19:16 | Diagnostic Imaging Report ---
EXAMINATION: Chest 1 view HISTORY: Dyspnea. Hypertension. COMPARISON: Chest radiograph on 03/02/2020. FINDINGS: The lung volumes are hyperexpanded. No focal consolidation is seen. No large pleural effusion or pneumothorax is seen. The cardiomediastinal silhouette is normal in size and contour. No acute osseous abnormality is seen. IMPRESSION: 1. Hyperexpanded lungs, which can be seen with COPD. No focal consolidations. If the patient is high risk for lung malignancy, consider further evaluation with CT chest. Dictated by: Dictated on workstation # [id number]
[2020-03-07 19:23] LABS: BASOPHILS % (AUTO) 0 % (0-10); EOSINOPHILS # (AUTO) 0.1 10^3/uL (0.0-0.3); EOSINOPHILS % (AUTO) 1 % (0-10); HEMATOCRIT 53 % (35-52); HEMOGLOBIN 19.2 G/DL (11.5-16.0); LYMPHOCYTES # (AUTO) 1.9 X 10^3 (1.0-4.0); LYMPHOCYTES % (AUTO) 20 % (12-44); MEAN CORPUSCULAR HGB CONC 36 G/DL (32-36); MEAN CORPUSCULAR VOLUME 96 FL (80-99); MONOCYTES # (AUTO) 0.7 X 10^3 (0.0-1.0); MONOCYTES % (AUTO) 8 % (0-12); NEUTROPHILS # (AUTO) 6.9 X 10^3 (1.8-7.8); NEUTROPHILS % (AUTO) 72 % (42-75); PLATELET COUNT 303 10^3/uL (130-400); RED CELL DISTRIBUTION WIDTH 12.9 % (10.0-14.5); WHITE BLOOD COUNT 9.6 10^3/uL (4.3-11.0)
[2020-03-07 19:24] LABS: MEAN CORPUSCULAR HEMOGLOBIN 34 PG (25-34)
--- OUTSIDE RECORDS SUMMARY | 2020-03-07 19:26 | XMS REPORT ---
Author Author Kari ROSE Organization [employer] Address Unknown Phone Unavailable Care Team Providers Care Rn Access Name Role Phone EUGENIE ROSE CP Unavailable Allergies, Adverse Reactions, Alerts Substance Reaction Event Type N.K.D.A. Info Not Available Non Drug Allergy Problems Problem Type Condition Code Onset Dates Condition Statu s Assessment Wound abscess, subsequent encounter T81.4XXD Active Medications Medication Code System Code Instructions Start Date End Date Status Dosage Clindamycin HCl [facility] [address]-07 300 MG Orally every 8 hrs Oc t 2015Apr 30, 2016 1 capsule Bactroban [facility] [address]-64 2 % Externally Three times a day 1 application to affected area Procedures Procedure Coding System Code Date Office Visit, New Pt., Level 3 CPT-[address] 2015 Vital Signs Date/Time: Apr 23, 2016 Cardiac Monitoring Heart Rate 76 bpm Weight 83.4 lbs Height 65.5 in BMI 13.67 Index Blood Pressure Diastolic 70 mmHg Blood Pressure Systolic 120 mmHg Results No Known Results Summary Purpose [employer] Submission
--- OUTSIDE RECORDS SUMMARY | 2020-03-07 19:26 | XMS REPORT | Continuity of Care Document ---
Author Author The [facility] Ja[facility] Organization [employer] Address Unknown Phone Unavailable Allergies Active Description Code Type Severity Reaction Onset Reported/Identified Relationship to Patient Clinical Status Yes No Known Drug Allergies [id number] Drug Allergy Unknown N/A 03/02/2020 Medications There is no data. Problems Date Dx Coded Attending Type Code Diagnosis Diagnosed By 04/30/2016 CARLOS SILVA Ot F17.210 NICOTINE DEPENDENCE, CIGARETTES, UNCOMPL 04/30/2016 CARLOS SILVA Ot T63.391A TOXIC EFFECT OF VENOM OF SPIDER, ACCIDEN 05/01/2016 CARLOS SILVA Ot F17.210 NICOTINE DEPENDENCE, CIGARETTES, UNCOMPL 05/01/2016 CARLOS SILVA Ot T63.391A TOXIC EFFECT OF VENOM OF SPIDER, ACCIDEN 03/03/2020 MARTELL DO, STEPHANY Ot E86.0 DEHYDRATION 03/03/2020 MARTELL DO, STEPHANY Ot E87.1 HYPO-OSMOLALITY AND HYPONATREMIA 03/03/2020 MARTELL DO, STEPHANY Ot E87.5 HYPERKALEMIA 03/03/2020 MARTELL DO, STEPHANY Ot F17.21 0 NICOTINE DEPENDENCE, CIGARETTES, UNCOMPL 03/03/2020 MARTELL DO, STEPHANY Ot I10 ESSENTIAL (PRIMARY) HYPERTENSION 03/03/2020 MARTELL DO STEPHANY Ot J44.1 CHRONIC OBSTRUCTIVE PULMONARY DISEASE W 03/03/2020 MARTELL DO, STEPHANY Ot R10.13 EPIGASTRIC PAIN Procedures There is no data. Results Test Result Range CULTURE, URINE - 09/21/19 09:39 CULTURE, URINE, ROUTINE SEE NOTE NRG TSH w/ FREE T4 - 02/12/20 13:59 TSH 2.66 mIU/L 0.40-4.50 T4, FREE 1.4 ng/dL 0.8-1.8 CMP - 02/12/20 13:59 GLUCOSE 85 mg/dL 65-99 UREA NITROGEN (BUN) 7 mg/dL 7-25 CREATININE 0.51 mg/dL 0.50-0.99 eGFR NON-AFR. [place] 105 mL/min/1.73m2 > OR = 60 eGFR 121 mL/min/1.73m2 > OR = 60 BUN/CREATININE RATIO NOT APPLICABLE (calc) 6-22 SODIUM 133 mmol/L 135-146 POTASSIUM 5.2 mmol/L 3.5-5.3 CHLORIDE 90 mmol/L 98-110 CARBON DIOXIDE 30 mmol/L 20-32 CALCIUM 9.9 mg/dL 8.6-10.4 PROTEIN, TOTAL 6.3 g/dL 6.1-8.1 ALBUMIN 4.4 g/dL 3.6-5.1 GLOBULIN 1.9 g/dL (calc) 1.9-3.7 ALBUMIN/GLOBULIN RATIO 2.3 (calc) 1.0-2. 5 BILIRUBIN, TOTAL 0.9 mg/dL 0.2-1.2 ALKALINE PHOSPHATASE 95 U/L 37-153 AST 35 U/L 10-35 ALT 31 U/L 6-29 CBC w/MANUAL DIFF - 02/12/20 13:59 WHITE BLOOD CELL COUNT 5.8 Thousand/uL 3 .8-10.8 RED BLOOD CELL COUNT 5.64 Million/uL 3.8 0-5.10 HEMOGLOBIN 19.4 g/dL 11.7-15.5 HEMATOCRIT 58.0 % 35.0-45.0 MCV 102.8 fL 80.0-100.0 MCH 34.4 pg 27.0-33.0 MCHC 33.4 g/dL 32.0-36.0 RDW 12.0 % 11.0-15.0 PLATELET COUNT 211 Thousand/uL 140-400 MPV 9.1 fL 7.5-12.5 ABSOLUTE NEUTROPHILS 4060 cells/uL 1500- 7800 ABSOLUTE LYMPHOCYTES 1044 cells/uL 850-3 900 ABSOLUTE MONOCYTES 580 cells/uL 200-950 ABSOLUTE EOSINOPHILS 58 cells/uL 15-500 ABSOLUTE BASOPHILS 58 cells/uL 0-200 NEUTROPHILS 70 % NRG LYMPHOCYTES 18 % NRG MONOCYTES 10 % NRG EOSINOPHILS 1 % NRG BASOPHILS 1 % NRG COMMENT(S) . NRG ERYTHROPOIETIN - 02/17/20 15:58 ERYTHROPOIETIN 6.3 mIU/mL 2.6-18.5 PREALBUMIN - 02/17/20 15:58 PREALBUMIN 22 mg/dL 17-34 CBC - 02/23/20 10:09 WHITE BLOOD CELL COUNT 6.4 Thousand/uL 3 .8-10.8 RED BLOOD CELL COUNT 5.51 Million/uL 3.8 0-5.10 HEMOGLOBIN 19.0 g/dL 11.7-15.5 HEMATOCRIT 56.1 % 35.0-45.0 MCV 101.8 fL 80.0-100.0 MCH 34.5 pg 27.0-33.0 MCHC 33.9 g/dL 32.0-36.0 RDW 12.4 % 11.0-15.0 PLATELET COUNT 241 Thousand/uL 140-400 MPV 9.8 fL 7.5-12.5 ABSOLUTE NEUTROPHILS 4998 cells/uL 1500- 7800 ABSOLUTE LYMPHOCYTES 678 cells/uL 850-39 00 ABSOLUTE MONOCYTES 646 cells/uL 200-950 ABSOLUTE EOSINOPHILS 19 cells/uL 15-500 ABSOLUTE BASOPHILS 58 cells/uL 0-200 NEUTROPHILS 78.1 % NRG LYMPHOCYTES 10.6 % NRG MONOCYTES 10.1 % NRG EOSINOPHILS 0.3 % NRG BASOPHILS 0.9 % NRG VITAMIN B12 - 02/23/20 10:09 VITAMIN B12 701 pg/mL 200-1100 JAK2 EXON 12 MUTATION - 02/23/20 10:09 CLINICAL INDICATION [id number] NRG SPECIMEN SOURCE *WHOLE BLOOD NRG BLOCK/SPECIMEN ID NG NRG JAK2 EXON 12 MUTATION NOT DETECTED NOT DETECTED INTERPRETATION SEE NOTE NRG ASSAY DETAILS SEE NOTE NRG Complete blood count (CBC) with automate d white blood cell (WBC) differential - 03/02/20 14:48 Blood leukocytes automated count (number/volume) 8.5 10*3/uL 4.3-11.0 Blood erythrocytes automated count (number/volume) 5.79 10*6/uL 4.35-5.85 Venous blood hemoglobin measurement (mass/volume) 19.9 g/dL 11.5-16.0 Blood hematocrit (volume fraction) 55 % 35-52 Automated erythrocyte mean corpuscular volume 95 [ foz_us] 80-99 Automated erythrocyte mean corpuscular h emoglobin (mass per erythrocyte) 34 pg 25-34 Automated erythrocyte mean corpuscular h emoglobin concentration measurement (mass/volume) 36 g/dL 32-36 Automated erythrocyte distribution width ratio 12. 8 % 10.0- 14.5 Automated blood platelet count (count/volume) 277 10*3/uL 130-400 Automated blood platelet mean volume measurement 9.3 [foz_us] 7.4-10.4 Automated blood neutrophils/100 leukocytes 74 % 42-75 Automated blood lymphocytes/100 leukocytes 12 % 12-44 Blood monocytes/100 leukocytes 13 % 0-12 Automated blood eosinophils/100 leukocytes 0 % 0-10 Automated blood basophils/100 leukocytes 1 % 0-10 Blood neutrophils automated count (number/volume) 6.3 10*3 1.8-7.8 Blood lymphocytes automated count (number/volume) 1.0 10*3 1.0-4.0 Blood monocytes automated count (number/volume) 1. 1 10*3 0.0-1.0 Automated eosinophil count 0.0 10*3/uL 0 .0-0.3 Automated blood basophil count (count/volume) 0.1 10*3/uL 0.0-0.1 PT panel in platelet poor plasma by coag ulation assay - 03/02/20 14:48 Prothrombin time (PT) in platelet poor plasma by coagu lation assay 13.6 s 12.2-14.7 INR in platelet poor plasma or blood by coagulation as say 1.0 0.8-1.4 Activated partial thromboplastin time (a PTT) in platelet poor plasma bycoagulation assay - 03/02/20 14:48 Activated partial thromboplastin time (a PTT) in platelet poor plasma bycoagulation assay 29 s 24-35 Serum or plasma troponin i.cardiac measu rement (mass/volume) - 03/02/20 14:48 Serum or plasma troponin i.cardiac measurement (mass/v olume) < ng/mL <0.028 Comprehensive metabolic panel - 03/02/20 14:48 Serum or plasma sodium measurement (moles/volume) 117 mmol/L 135-145 Serum or plasma potassium measurement (moles/volume) 5.2 mmol/L 3.6-5.0 Serum or plasma chloride measurement (moles/volume) 82 mmol/L 98-107 Carbon dioxide 25 mmol/L 21-32 Serum or plasma anion gap determination (moles/volume) 10 mmol/L 5-14 Serum or plasma urea nitrogen measurement (mass/volume ) 8 mg/dL 7-18 Serum or plasma creatinine measurement (mass/volume) 0.57 mg/dL 0.60-1.30 Serum or plasma urea nitrogen/creatinine mass ratio 14 NRG Serum or plasma creatinine measurement w ith calculation of estimated glomerular filtration rate > NRG Serum or plasma glucose measurement (mass/volume) 121 mg/dL 70-105 Serum or plasma calcium measurement (mass/volume) 8.5 mg/dL 8.5-10.1 Serum or plasma total bilirubin measurement (mass/volu me) 1.2 mg/dL 0.1-1.0 Serum or plasma alkaline phosphatase deepika surement (enzymatic activity/volume) 103 U/L 40-136 Serum or plasma aspartate aminotransfera se measurement (enzymatic activity/volume) 26 U/L 5-34 Serum or plasma alanine aminotransferase measurement (enzymatic activity/volume) 28 U/L 0-55 Serum or plasma protein measurement (mass/volume) 6.4 g/dL 6.4-8.2 Serum or plasma albumin measurement (mass/volume) 3.8 g/dL 3.2-4.5 CALCIUM CORRECTED 8.7 mg/dL 8.5-10.1 Magnesium - 03/02/20 14:48 Magnesium 1.7 mg/dL 1.6-2.4 Myoglobin, serum - 03/02/20 14:48 Myoglobin, serum 46.0 ng/mL 10.0-92.0 Lipase - 03/02/20 14:48 Lipase 18 U/L 8-78 Arterial blood gas measurement - 0 15:38 Blood pCO2 38 mm[Hg] 35-45 Blood pO2 86 mm[Hg] 79-93 Arterial blood bicarbonate measurement (moles/volume) 25 mmol/L 23-27 Arterial blood base excess by calculation 1.7 mmol /L -2.5-2.5 Arterial blood oxygen saturation measurement 97 % 94-100 * Inhaled oxygen flow rate 2L NRG Arterial blood pH measurement with patient temperature correction 7.44 7.37-7.43 Arterial blood carbon dioxide, total measurement (mole s/volume) 26.5 mmol/L 21.0-31.0 Body site R RAD NRG Assessment of wrist artery patency prior to arterial p uncture YES-POS NRG Setting of ventilation mode NO NR G Measurement of body temperature 37.1 NRG Serum or plasma troponin i.cardiac measu rement (mass/volume) - 03/02/20 17:02 Serum or plasma troponin i.cardiac measurement (mass/v olume) < ng/mL <0.028 Comprehensive metabolic panel - 03/03/20 03:19 Serum or plasma sodium measurement (moles/volume) 122 mmol/L 135-145 Serum or plasma potassium measurement (moles/volume) 4.5 mmol/L 3.6-5.0 Serum or plasma chloride measurement (moles/volume) 86 mmol/L 98-107 Carbon dioxide 25 mmol/L 21-32 Serum or plasma anion gap determination (moles/volume) 11 mmol/L 5-14 Serum or plasma urea nitrogen measurement (mass/volume ) 22 mg/dL 7-18 Serum or plasma creatinine measurement (mass/volume) 0.89 mg/dL 0.60-1.30 Serum or plasma urea nitrogen/creatinine mass ratio 25 NRG Serum or plasma creatinine measurement w ith calculation of estimated glomerular filtration rate > NRG Serum or plasma glucose measurement (mass/volume) 141 mg/dL 70-105 Serum or plasma calcium measurement (mass/volume) 8.3 mg/dL 8.5-10.1 Serum or plasma total bilirubin measurement (mass/volu me) 0.7 mg/dL 0.1-1.0 Serum or plasma alkaline phosphatase deepika surement (enzymatic activity/volume) 86 U/L 40-136 Serum or plasma aspartate aminotransfera se measurement (enzymatic activity/volume) 18 U/L 5-34 Serum or plasma alanine aminotransferase measurement (enzymatic activity/volume) 22 U/L 0-55 Serum or plasma protein measurement (mass/volume) 5.8 g/dL 6.4-8.2 Serum or plasma albumin measurement (mass/volume) 3.3 g/dL 3.2-4.5 CALCIUM CORRECTED 8.9 mg/dL 8.5-10.1 Lipid 1996 panel - 03/03/20 03:19 Serum or plasma triglyceride measurement (mass/volume) 76 mg/dL <150 Serum or plasma cholesterol measurement (mass/volume) 178 mg/dL < 200 Serum or plasma cholesterol in HDL measurement (mass/v olume) 87 mg/dL 40-60 Cholesterol in LDL [mass/volume] in serum or plasma by direct assay 74 mg/dL 1-129 Serum or plasma cholesterol in VLDL measurement (mass/ volume) 15 mg/dL 5-40 Complete blood count (CBC) with automate d white blood cell (WBC) differential - 03/03/20 03:19 Blood leukocytes automated count (number/volume) 5.6 10*3/uL 4.3-11.0 Blood erythrocytes automated count (number/volume) 5.59 10*6/uL 4.35-5.85 Venous blood hemoglobin measurement (mass/volume) 18.9 g/dL 11.5-16.0 Blood hematocrit (volume fraction) 54 % 35-52 Automated erythrocyte mean corpuscular volume 96 [ foz_us] 80-99 Automated erythrocyte mean corpuscular h emoglobin (mass per erythrocyte) 34 pg 25-34 Automated erythrocyte mean corpuscular h emoglobin concentration measurement (mass/volume) 35 g/dL 32-36 Automated erythrocyte distribution width ratio 12. 7 % 10.0- 14.5 Automated blood platelet count (count/volume) 274 10*3/uL 130-400 Automated blood platelet mean volume measurement 9.8 [foz_us] 7.4-10.4 Automated blood neutrophils/100 leukocytes 90 % 42-75 Automated blood lymphocytes/100 leukocytes 7 % 12-44 Blood monocytes/100 leukocytes 3 % 0-12 Automated blood eosinophils/100 leukocytes 0 % 0-10 Automated blood basophils/100 leukocytes 0 % 0-10 Blood neutrophils automated count (number/volume) 5.0 10*3 1.8-7.8 Blood lymphocytes automated count (number/volume) 0.4 10*3 1.0-4.0 Blood monocytes automated count (number/volume) 0. 2 10*3 0.0-1.0 Automated eosinophil count 0.0 10*3/uL 0 .0-0.3 Automated blood basophil count (count/volume) 0.0 10*3/uL 0.0-0.1 Manual absolute plasma cell count - 02/19 10/08 03:19 Blood monocytes/100 leukocytes 3 % NRG Manual blood segmented neutrophils/100 leukocytes 86 % NRG Blood band neutrophils/100 leukocytes 4 % NRG Manual blood lymphocytes/100 leukocytes 7 % NRG Complete blood count (CBC) with automate d white blood cell (WBC) differential - 03/07/20 19:16 Blood leukocytes automated count (number/volume) 9.6 10*3/uL 4.3-11.0 Blood erythrocytes automated count (number/volume) 5.57 10*6/uL 4.35-5.85 Venous blood hemoglobin measurement (mass/volume) 19.2 g/dL 11.5-16.0 Blood hematocrit (volume fraction) 53 % 35-52 Automated erythrocyte mean corpuscular volume 96 [ foz_us] 80-99 Automated erythrocyte mean corpuscular h emoglobin (mass per erythrocyte) 34 pg 25-34 Automated erythrocyte mean corpuscular h emoglobin concentration measurement (mass/volume) 36 g/dL 32-36 Automated erythrocyte distribution width ratio 12. 9 % 10.0- 14.5 Automated blood platelet count (count/volume) 303 10*3/uL 130-400 Automated blood platelet mean volume measurement 9.0 [foz_us] 7.4-10.4 Automated blood neutrophils/100 leukocytes 72 % 42-75 Automated blood lymphocytes/100 leukocytes 20 % 12-44 Blood monocytes/100 leukocytes 8 % 0-12 Automated blood eosinophils/100 leukocytes 1 % 0-10 Automated blood basophils/100 leukocytes 0 % 0-10 Blood neutrophils automated count (number/volume) 6.9 10*3 1.8-7.8 Blood lymphocytes automated count (number/volume) 1.9 10*3 1.0-4.0 Blood monocytes automated count (number/volume) 0. 7 10*3 0.0-1.0 Automated eosinophil count 0.1 10*3/uL 0 .0-0.3 Automated blood basophil count (count/volume) 0.0 10*3/uL 0.0-0.1 Encounters ACCT No. Visit Date/Time Discharge Status Pt. Type Provider Facility Loc./Unit Complaint [id number] 03/04/2020 09:00:00 03/04/2020 23:59:5 9 [facility] Outpatient CHRIS WHITTAKER [facility] [id number] 02/23/2020 09:20:00 Document Registration [id number] 02/17/2020 16:00:00 Document Registration [id number] 02/12/2020 13:00:00 Document Registration [id number] 09/21/2019 09:40:00 Document Registration [id number] 03/02/2020 16:55:00 020 13:15:00 DIS Inpatient MARTELL STEPHANY [facility] CSD COPD EXACERBATION,EPIGA STRIC PAIN,DECREASED SODIUM [id number] 04/30/2016 20:04:00 10/10/2 016 20:33:00 DIS Emergency CARLOS SILVA [facility] ER POSSIBLE SPIDER BITE [id number] 03/07/2020 18:43:[address] Emergency DUSTIN BELL DO [facility] ER HYPERTENSION
--- OUTSIDE RECORDS SUMMARY | 2020-03-07 19:26 | XMS REPORT ---
Author Author [place] qc manager [facility] [place] [facility] [employer] Address [address] [place] [address] Care Team Providers Care Filter Pulp Washer Name Role Phone JANET HINES Unavailable MONIAK, JOE S Unavailable Unavailable Unavailable Unavailable MONIKA, JOE S Unavailable Unavailable CHRIS WHITTAKER Unavailable Unavailable [place], GLADYS Luque Unavailable Unavailable CARLOS SILVA Unavailable Unavailable MARTELL DO, STEPHANY S Unavailable Unavailable MARTELL DO, STEPHANY S Unavailable Unavailable Unavailable Unavailable Unavailable Unavailable Unavailable Unavailable Allergies The data below is from unstructured sourcesNo allergy information available. Encounters Encounter Date Encounter Type Encounter Diagnosis Care Provider Facility Start: Patient encounter CHRIS K WHITTAKER [facility] 03-04-2020 procedure [facility] Start: Evaluation and STEPHANY S MARTELL DO [facility] 03-02-2020 management of [facility] inpatient End: 03-03-2020 Start: Patient encounter STEPHANY S MARTELL DO [facility] 03-02-2020 procedure [facility] End: 03-03-2020 Start: Emergency department GLADYS KAT MD [facility] 03-02-2020 patient visit [facility] Start: Patient encounter CHRIS WHITTAKER [facility] 02-29-2020 procedure [facility] Start: Patient encounter CHRIS WHITTAKER [facility] 02-23-2020 procedure [facility] Start: Patient encounter CHRIS WHITTAKER [facility] 02-17-2020 procedure [facility] Start: Patient encounter TOMER JEFF [facility] 02-12-2020 procedure [facility] Start: Patient encounter JOE TAVERAOn license of [facility] 02-09-2020 procedure [facility] Start: Patient encounter JOE S MONIKA [facility] 09-21-2019 procedure [facility] Start: Emergency department CARLOS ZARAGOZA [facility] 04-30-2016 patient visit [facility] End: 04-30-2016 Medical Equipment No Information Goals No Information Immunizations The data below is from unstructured sourcesNo immunization records. Interventions No Information Medications No Information Payers No Information Plan of Treatment The data below is from unstructured sources Discharge Date 04/30/16 8:33pm Disposition 01 HOME, SELF-CARE Condition at Discharge Improved Instructions/Education Provided Brice richey Recluse Spider Bite (ED) Prescriptions See Medication Section Referrals JANET HINES MD - [facility] Physician Additional Instructions/Education Al su discharge instructions reviewed with patient and/or family. Voiced understanding. Medications as instructed. Tylenol [id number] as directed for pain. Ibuprofen 800 mg by mouth every 8 hours as needed for pain. Shower with antibacterial soap and cover with a bandage. Keep wound from swelling. Follow-up with your family practitioner for recheck in the next 5-7 days. Return to the emergency department for worsened pain, redness, drainage, fever, or any other concerns. Problems Problem Problem Date Last Documented Episodic/Chr Provider Classificati Recorded Date onic on Abdominal Epigastric pain 03-04-2020 Episodic STEPHANY GARN ER pain DO (6 sources) Chronic Chronic obstructive pulmonary 03-04-2020 Chronic STEPHANY MARTELL obstructive disease with (acute) exacerbation D O pulmonary disease and bronchiectas is (6 sources) Essential Essential (primary) hypertension 03-04-2020 Chroni c STEPHANY MARTELL hypertension DO (6 sources) Fluid and Hypo-osmolality and hyponatremia ; 03-04-2020 Epis odic STEPHANYWendy MARTELL electrolyte Translations: [Dehydration] DO disorders (18 sources) Poisoning by Toxic effect of venom of other 03-03-2020 Episodi emre GONZALEZ nonmedicinal spider, accidental (unintentional), FRANKIE ZARAGOZA substances initial encounter (6 sources) Substance-re Nicotine dependence, cigarettes, 03-03-2020 Chron ic CARLOS lated uncomplicated FRANKIE ZARAGOZA disorders (9 sources) Procedures The data below is from unstructured sourcesNo known history of procedures. Results Test Name Value Interpreta Reference Facilit Date tion Range y Time not yet categorized on null BLO Negative Invalid Communi Interpreta ty tion Code [facility] (21032) Exp date 03/12/2020 Invalid Communi Interpreta ty tion Code [facility] (88087) KET 12/2020~Clear~Yellow~None~Negative~Negative~N Invalid Communi egative Interpreta ty tion Code [facility] (15420) Lot # [id number] Invalid Communi Interpreta ty tion Code [facility] (92680) Lot # [id number] Invalid Communi Interpreta ty tion Code [facility] (26580) SG 1.015 Invalid Communi Interpreta ty tion Code [facility] (82440) URO 0.2 Invalid Communi Interpreta ty tion Code [facility] (27043) laboratory on null pH (Bld) 7.0 [pH] Invalid Communi Interpreta ty tion Code [facility] (52592) Protein (U) Negative Invalid Communi [Mass/Vol] Interpreta ty tion Code [facility] (01360) respiratory measures and ventilator management on 2020-03-02 Ventilation mode NO Invalid PENDING Ventilator Interpreta LOCATIO 020 tion Code N [facility] 11:38-0 ([id number]) 400 not yet categorized on 2020-03-02 Arterial patency YES-POS Invalid PENDING Wrist artery --pre Interpreta LOCATIO 020 arterial puncture tion Code N [facility] 11:38-0 (56055) 400 Body site R RAD Invalid PENDING Interpreta LOCATIO 020 tion Code N [facility] 11:38-0 (36552) 400 Inhaled oxygen flow 2L Invalid PENDING rate Interpreta LOCATIO 020 tion Code N [facility] 11:38-0 (56059) 400 laboratory on 2020-03-02 Albumin [Mass/Vol] 3.8 g/dL Negative 3.2-4.5 PENDING 08- 2-2 g/dL LOCATIO 020 N [facility] 10:48-0 ([id number]) 400 Albumin [Mass/Vol] 3.3 g/dL Negative 3.2-4.5 PENDING 08- 2-2 g/dL LOCATIO 020 [facility] 23:19-0 (19573) 400 ALP [Catalytic 103 U/L Negative 40-136 U/L PENDING -12-2 activity/Vol] LOCATIO 020 [facility] 10:48-0 (00597) 400 ALP [Catalytic 86 U/L Negative 40-136 U/L PENDING 08-12-2 activity/Vol] LOCATIO 020 [facility] 23:19-0 (45088) 400 ALT [Catalytic 28 U/L Negative 0-55 U/L PENDING 08-12-2 activity/Vol] LOCATIO 020 [facility] 10:48-0 (03353) 400 ALT [Catalytic 22 U/L Negative 0-55 U/L PENDING --2 activity/Vol] LOCATIO 020 [facility] 23:19-0 ([id number]) 400 Anion gap 10 mmol/L Negative 5-14 PENDING -12-2 [Moles/Vol] mmol/L LOCATIO 020 [facility] 10:48-0 ([id number]) 400 Anion gap 11 mmol/L Negative 5-14 PENDING 12-2 [Moles/Vol] [facility] 23:19-0 (71520) 400 aPTT Coag (PPP) 29 s Negative 24-35 s PENDING [Time] LOCATIO 020 [facility] 10:48-0 ([id number]) 400 AST [Catalytic 26 U/L Negative 5-34 U/L PENDING 03-02-2 activity/Vol] LOCATIO 020 [facility] 10:48-0 ([id number]) 400 AST [Catalytic 18 U/L Negative 5-34 U/L PENDING 12-2 activity/Vol] LOCATIO 020 [facility] 23:19-0 ([id number]) 400 Band form 4 % Invalid % PENDING 03-02-2 neutrophils/100 WBC Interpreta LOCATIO 020 (Bld) tion Code [facility] 23:19-0 (08083) 400 Base excess Calc 1.7 mmol/L Negative -2.5-2.5 PENDING 03-02 -2 (Bld) [Moles/Vol] mmol/L LOCATIO 020 [facility] 11:38-0 (75698) 400 Basophils (Bld) 0.1 10*3/uL Negative 0.0-0.1 PENDING 08-12 -2 [#/Vol] 10*3/uL LOCATIO 020 [facility] 10:48-0 (49905) 400 Basophils (Bld) 0.0 10*3/uL Negative 0.0-0.1 PENDING 08-12 -2 [#/Vol] 10*3/uL LOCATIO 020 [facility] 23:19-0 (55092) 400 Basophils/100 WBC 1 % Negative 0-10 % PENDING 08-12 -2 (Bld) LOCATIO 020 [facility] 10:48-0 (50429) 400 Basophils/100 WBC 0 % Negative 0-10 % PENDING 08-12 -2 (Bld) LOCATIO [address] [place] [address] 23:19-0 ([id number]) 400 Bilirubin [Mass/Vol] 1.2 mg/dL High 0.1-1.0 PENDING 08 -12-2 mg/dL [facility] 020 [facility] 10:48-0 (83373) 400 Bilirubin [Mass/Vol] 0.7 mg/dL Negative 0.1-1.0 PENDING 08 -12-2 mg/dL [facility] 23:19-0 ([id number]) 400 Calcium [Mass/Vol] 8.5 mg/dL Negative 8.5-10.1 PENDING 08-1 2-2 mg/dL [facility] 10:48-0 ([id number]) 400 Calcium [Mass/Vol] 8.7 mg/dL Negative 8.5-10.1 PENDING 08-1 2-2 mg/dL [facility] 10:48-0 (47293) 400 Calcium [Mass/Vol] 8.3 mg/dL Low 8.5-10.1 PENDING 08-1 2-2 mg/dL LOCATIO 020 [facility] 23:19-0 (20910) 400 Calcium [Mass/Vol] 8.9 mg/dL Negative 8.5-10.1 PENDING 08-1 2-2 mg/dL [facility] 23:19-0 (20307) 400 Chloride [Moles/Vol] 82 mmol/L Low 98-107 PENDING 08 -12-2 mmol/L LOCATIO 020 [facility] 10:48-0 (38551) 400 Chloride [Moles/Vol] 86 mmol/L Low 98-107 PENDING 08 -12-2 mmol/L LOCATIO 020 [facility] 23:19-0 ([id number]) 400 Cholesterol 178 mg/dL Invalid < 200 PENDING 08-12-2 [Mass/Vol] Interpreta mg/dL LOCATIO 020 tion Code N [facility] 23:19-0 (24747) 400 Cholesterol in HDL 87 mg/dL High 40-60 PENDING 08-1 2-2 [Mass/Vol] mg/dL LOCATIO 020 [facility] 23:19-0 (10174) 400 Cholesterol in LDL 74 mg/dL Negative 1-129 PENDING 08-1 2-2 [Mass/Vol] mg/dL LOCATIO 020 [facility] 23:19-0 (92685) 400 Cholesterol in VLDL 15 mg/dL Negative 5-40 mg/dL PENDING 08 -12-2 [Mass/Vol] LOCATIO 020 [facility] 23:19-0 (42017) 400 CO2 (Bld) [Partial 38 mm[Hg] Negative 35-45 PENDING 08-1 2-2 pressure] mm[Hg] LOCATIO 020 [facility] 11:38-0 ([id number]) 400 CO2 [Moles/Vol] 25 mmol/L Negative 21-32 PENDING 08-12-2 mmol/L LOCATIO 020 [facility] 10:48-0 (61875) 400 CO2 [Moles/Vol] 26.5 mmol/L Negative 21.0-31.0 PENDING 08-12 -2 mmol/L LOCATIO 020 [facility] 11:38-0 ([id number]) 400 CO2 [Moles/Vol] 25 mmol/L Negative 21-32 PENDING 08-12-2 mmol/L LOCATIO 020 [facility] 23:19-0 ([id number]) 400 Creatinine 0.57 mg/dL Low 0.60-1.30 PENDING 08-12-2 [Mass/Vol] mg/dL LOCATIO 020 [facility] 10:48-0 (99331) 400 Creatinine 0.89 mg/dL Negative 0.60-1.30 PENDING 08-12-2 [Mass/Vol] mg/dL LOCATIO 020 [facility] 23:19-0 (03847) 400 Creatinine and > Invalid PENDING 2 Glomerular Interpreta LOCATIO 020 filtration tion Code N [facility] 10:48-0 rate.predicted panel (51156) 400 - Serum, Plasma or Blood Creatinine and > Invalid PENDING 03-02-2 Glomerular Interpreta LOCATIO 020 filtration tion Code N [facility] 23:19-0 rate.predicted panel (24743) 400 - Serum, Plasma or Blood Eosinophils (Bld) 0.0 10*3/uL Negative 0.0-0.3 PENDING -2 [#/Vol] 10*3/uL LOCATIO 020 N [facility] 10:48-0 (36885) 400 Eosinophils (Bld) 0.0 10*3/uL Negative 0.0-0.3 PENDING -2 [#/Vol] 10*3/uL LOCATIO 020 N [facility] 23:19-0 (72143) 400 Eosinophils/100 WBC 0 % Negative 0-10 % PENDING -2 (Bld) LOCATIO 020 N [facility] 10:48-0 (69343) 400 Eosinophils/100 WBC 0 % Negative 0-10 % PENDING -2 (Bld) LOCATIO 020 N [facility] 23:19-0 (70817) 400 Erythrocyte 12.8 % Negative 10.0-14.5 PENDING 12-2 distribution width % LOCATIO 020 (RBC) [Ratio] N [facility] 10:48-0 (53822) 400 Erythrocyte 12.7 % Negative 10.0-14.5 PENDING 03-02-2 distribution width % LOCATIO 020 (RBC) [Ratio] N [facility] 23:19-0 ([id number]) 400 Glucose [Mass/Vol] 121 mg/dL High 70-105 PENDING 08-1 2-2 mg/dL LOCATIO 020 N [facility] 10:48-0 ([id number]) 400 Glucose [Mass/Vol] 141 mg/dL High 70-105 PENDING 08-1 2-2 mg/dL LOCATIO 020 N [facility] 23:19-0 (14412) 400 HCO3 (Bld) 25 mmol/L Negative 23-27 PENDING 12-2 [Moles/Vol] mmol/L LOCATIO 020 N [facility] 11:38-0 (56214) 400 Hematocrit (Bld) 55 % High 35-52 % PENDING -12- 2 [Volume fraction] LOCATIO 020 [facility] 10:48-0 ([id number]) 400 Hematocrit (Bld) 54 % High 35-52 % PENDING 08-12- 2 [Volume fraction] LOCATIO 020 N [facility] 23:19-0 ([id number]) 400 Hemoglobin (Bld) 19.9 g/dL High 11.5-16.0 PENDING 08-12- 2 [Mass/Vol] g/dL LOCATIO 020 N [facility] 10:48-0 (84892) 400 Hemoglobin (Bld) 18.9 g/dL High 11.5-16.0 PENDING 08-12- 2 [Mass/Vol] g/dL LOCATIO 020 [facility] 23:19-0 ([id number]) 400 INR Coag (Platelet 1.0 Negative 0.8-1.4 PENDING 08-1 2-2 poor plasma or LOCATIO 020 blood) [Relative N [facility] 10:48-0 time] ([id number]) 400 Lipase [Catalytic 18 U/L Negative 8-78 U/L PENDING 03-02 -2 activity/Vol] LOCATIO 020 [facility] 10:48-0 ([id number]) 400 Lymphocytes (Bld) 1.0 10*3/uL Negative 1.0-4.0 PENDING -2 [#/Vol] 10*3 LOCATIO 020 [facility] 10:48-0 (81868) 400 Lymphocytes (Bld) 0.4 10*3/uL Low 1.0-4.0 PENDING -2 [#/Vol] 10*3 LOCATIO 020 [facility] 23:19-0 (39789) 400 Lymphocytes/100 WBC 12 % Negative 12-44 % PENDING - 12-2 (Bld) LOCATIO 020 [facility] 10:48-0 ([id number]) 400 Lymphocytes/100 WBC 7 % Low PENDING -12- 2 (Bld) LOCATIO 020 [facility] 23:19-0 (77572) 400 Magnesium [Mass/Vol] 1.7 mg/dL Negative 1.6-2.4 PENDING 12-2 mg/dL LOCATIO 020 [facility] 10:48-0 (12870) 400 MCH (RBC) [Entitic 34 pg Negative 25-34 pg PENDING 08-1 2-2 mass] [facility] 020 [facility] 10:48-0 ([id number]) 400 MCH (RBC) [Entitic 34 pg Negative 25-34 pg PENDING 08-1 2-2 mass] [facility] 23:19-0 ([id number]) 400 MCHC (RBC) 36 g/dL Negative 32-36 g/dL PENDING 08-12-2 [Mass/Vol] [address] 10:48-0 (04715) 400 MCHC (RBC) 35 g/dL Negative 32-36 g/dL PENDING 08-12-2 [Mass/Vol] [address] 23:19-0 (46731) 400 MCV (RBC) [Entitic 95 Negative 80-99 PENDING 08-1 2-2 vol] [foz_us] [address] 10:48-0 (32536) 400 MCV (RBC) [Entitic 96 Negative 80-99 PENDING 08-1 2-2 vol] [foz_us] [address] 23:19-0 ([id number]) 400 Monocytes (Bld) 1.1 10*3/uL High 0.0-1.0 PENDING 08-12 -2 [#/Vol] 10*[address] 10:48-0 (84397) 400 Monocytes (Bld) 0.2 10*3/uL Negative 0.0-1.0 PENDING 08-12 -2 [#/Vol] 10*[address] 23:19-0 ([id number]) 400 Monocytes/100 WBC 13 % High 0-12 % PENDING 08-12 -2 (Bld) [address] 10:48-0 (23764) 400 Monocytes/100 WBC 3 % Negative PENDING 08-12-2 (Bld) [address] 23:19-0 (70555) 400 Myoglobin [Mass/Vol] 46.0 ng/mL Negative 10.0-92.0 PENDING 0 8-12-2 ng/mL [address] 10:48-0 (69859) 400 Neutrophils (Bld) 6.3 10*3/uL Negative 1.8-7.8 PENDING 06-22 [#/Vol] 10*3 LOCATIO 020 N S 10:48-0 (46081) 400 Neutrophils (Bld) 5.0 10*3/uL Negative 1.8-7.8 PENDING 06-22 [#/Vol] 10*3 LOCATIO 020 N S 23:19-0 (43984) 400 Neutrophils/100 WBC 74 % Negative 42-75 % PENDING 06-22 (Bld) LOCATIO 020 N S 10:48-0 (43081) 400 Neutrophils/100 WBC 90 % High 42-75 % PENDING 06-22 (Bld) LOCATIO 020 N S 23:19-0 ([id number]) 400 Oxygen (Bld) 86 mm[Hg] Negative 79-93 PENDING [Partial pressure] mm[Hg] LOCATIO 020 N [facility] 11:38-0 (47010) 400 pH adjusted to 7.44 High 7.37-7.43 PENDING patient's actual LOCATIO 020 temperature (BldA) N [facility] 11:38-0 ([id number]) 400 Platelet mean volume 9.3 Negative 7.4-10.4 PENDING (Bld) [Entitic vol] [foz_us] LOCATIO 020 N [facility] 10:48-0 (55637) 400 Platelet mean volume 9.8 Negative 7.4-10.4 PENDING (Bld) [Entitic vol] [foz_us] LOCATIO 020 N [facility] 23:19-0 ([id number]) 400 Platelets (Bld) 277 10*3/uL Negative 130-400 PENDING 03-02 [#/Vol] 10*3/uL LOCATIO 020 N [facility] 10:48-0 (58109) 400 Platelets (Bld) 274 10*3/uL Negative 130-400 PENDING 03-02 [#/Vol] 10*3/uL LOCATIO 020 N S 23:19-0 ([id number]) 400 Potassium 5.2 mmol/L High 3.6-5.0 PENDING 08-12-2 [Moles/Vol] mmol/L LOCATIO 020 N [facility] 10:48-0 (06760) 400 Potassium 4.5 mmol/L Negative 3.6-5.0 PENDING 08-12-2 [Moles/Vol] mmol/L LOCATIO 020 N [facility] 23:19-0 ([id number]) 400 Protein [Mass/Vol] 6.4 g/dL Negative 6.4-8.2 PENDING 08-1 2-2 g/dL LOCATIO 020 N [facility] 10:48-0 (74559) 400 Protein [Mass/Vol] 5.8 g/dL Low 6.4-8.2 PENDING 08-1 2-2 g/dL LOCATIO 020 N [facility] 23:19-0 (30753) 400 PT Coag (PPP) [Time] 13.6 s Negative 12.2-14.7 PENDING 08 -12-2 s LOCATIO 020 N [facility] 10:48-0 ([id number]) 400 RBC (Bld) [#/Vol] 5.79 10*6/uL Negative 4.35-5.85 PENDING 12-2 10*6/uL LOCATIO 020 N [facility] 10:48-0 ([id number]) 400 RBC (Bld) [#/Vol] 5.59 10*6/uL Negative 4.35-5.85 PENDING 08 12-2 10*6/uL LOCATIO 020 N [facility] 23:19-0 ([id number]) 400 Segmented 86 % Invalid % PENDING 03-02-2 neutrophils/100 WBC Interpreta LOCATIO 020 (Bld) tion Code N [facility] 23:19-0 ([id number]) 400 Sodium [Moles/Vol] 117 mmol/L Critically 135-145 PENDING 08 -12-2 low mmol/L LOCATIO 020 N [facility] 10:48-0 (95727) 400 Sodium [Moles/Vol] 122 mmol/L Critically 135-145 PENDING 08 -12-2 low mmol/L LOCATIO 020 N [facility] 23:19-0 (63550) 400 Triglyceride 76 mg/dL Negative <150 mg/dL PENDING 08-12-2 [Mass/Vol] LOCATIO 020 N [facility] 23:19-0 ([id number]) 400 Troponin I.cardiac ng/mL Negative <0.028 PENDING 02-19 2-2 [Mass/Vol] ng/mL LOCATIO 020 [facility] 10:48-0 (94041) 400 Troponin I.cardiac ng/mL Negative <0.028 PENDING 02-19 2-2 [Mass/Vol] ng/mL LOCATIO 020 N [facility] 13:02-0 (46212) 400 Urea nitrogen 8 mg/dL Negative 7-18 mg/dL PENDING [Mass/Vol] LOCATIO 020 N [facility] 10:48-0 (91052) 400 Urea nitrogen 22 mg/dL High 7-18 mg/dL PENDING [Mass/Vol] LOCATIO 020 N [facility] 23:19-0 (98437) 400 Urea 14 mg/mg Invalid PENDING nitrogen/Creatinine Interpreta LOCATIO 020 [Mass ratio] tion Code [facility] 10:48-0 (36314) 400 Urea 25 mg/mg Invalid PENDING nitrogen/Creatinine Interpreta LOCATIO 020 [Mass ratio] tion Code [facility] 23:19-0 (05362) 400 WBC (Bld) [#/Vol] 8.5 10*3/uL Negative 4.3-11.0 PENDING 06-22 10*3/uL LOCATIO 020 [facility] 10:48-0 (42532) 400 WBC (Bld) [#/Vol] 5.6 10*3/uL Negative 4.3-11.0 PENDING 06-22 10*3/uL LOCATIO 020 [facility] 23:19-0 (47738) 400 not yet categorized on 2020-02-23 BLOCK/SPECIMEN ID [id number] Invalid Communi Interpreta ty tion Code [facility] (26589) CLINICAL INDICATION [id number] Invalid Communi Interpreta ty tion Code [facility] (13331) laboratory on 2020-02-23 Basophils (Bld) 0.058 10*3/uL Normal 0-200 Communi [#/Vol] cells/uL [facility] (65103) Basophils/100 WBC 0.9 % Normal % Communi (Bld) [facility] (62633) Cobalamin (Vitamin 701 pg/mL Normal 200-1100 Communi B12) [Mass/Vol] pg/mL ty [facility] (80789) Eosinophils (Bld) 0.019 10*3/uL Normal 15-500 Commun i [#/Vol] cells/uL ty [facility] (83264) Eosinophils/100 WBC 0.3 % Normal % Commun i (Bld) ty [facility] (60196) Erythrocyte 12.4 % Normal 11.0-15.0 Communi distribution width % ty (RBC) [Ratio] [facility] (45418) Hematocrit (Bld) 56.1 % High 35.0-45.0 Communi [Volume fraction] % ty [facility] (91873) Hemoglobin (Bld) 19.0 g/dL High 11.7-15.5 Communi [Mass/Vol] g/dL ty [facility] (65216) JAK2 gene exon 12 Not detected Invalid NOT Communi targeted mutation Interpreta DETECTED ty analysis [employer] Doc tion [facility] (Bld/Tiss) [facility] (31511) Lymphocytes (Bld) 0.678 10*3/uL Low 850-3900 Commun i [#/Vol] cells/uL ty [facility] (81993) Lymphocytes/100 WBC 10.6 % Normal % Commun i (Bld) ty [facility] (92407) MCH (RBC) [Entitic 34.5 pg High 27.0-33.0 Communi mass] pg ty [facility] (52736) MCHC (RBC) 33.9 g/dL Normal 32.0-36.0 Communi [Mass/Vol] g/dL [facility] (23615) MCV (RBC) [Entitic 101.8 fL High 80.0-100.0 Communi vol] fL [facility] (23918) Monocytes (Bld) 0.646 10*3/uL Normal 200-950 Communi [#/Vol] cells/uL ty [facility] (92718) Monocytes/100 WBC 10.1 % Normal % Communi (Bld) [facility] (21086) Narrative diagnostic SEE NOTE Invalid Communi report [employer] Interpreta ty (Bld/Tiss) [Interp] tion [facility] (77166) Neutrophils (Bld) 4.998 10*3/uL Normal 1541-4102 Commun i [#/Vol] cells/uL [facility] (46498) Neutrophils/100 WBC 78.1 % Normal % Commun i (Bld) [facility] (01000) Platelet mean volume 9.8 fL Normal 7.5-12.5 Commu ni (Bld) [Entitic vol] fL [facility] (14277) Platelets (Bld) 241 10*3/uL Normal 140-400 Communi [#/Vol] Thousand/u ty L [facility] (63467) RBC (Bld) [#/Vol] 5.51 10*6/uL High 3.80-5.10 Communi Million/uL [facility] (00492) Service comment 05 SEE NOTE Invalid Communi (Unsp spec) [Interp] [facility] Spec[facility] source Nom *WHOLE BLOOD Invalid Communi (Unsp spec) Interpreta ty tion [facility] (03803) WBC (Bld) [#/Vol] 6.4 10*3/uL Normal 3.8-10.8 Communi Thousand/u ty L [facility] (28527) laboratory on 2020-02-17 CRP [Mass/Vol] 0.4 mg/L Normal <8.0 mg/L Communi [facility] (67700) Erythropoietin (EPO) 6.3 Normal 2.6-18.5 Commu ni Qn mIU/mL [facility] (82537) ESR (Bld) [Velocity] 2 mm/h Normal < OR = 30 Commu ni mm/h [facility] (07437) Ferritin [Mass/Vol] 97 ng/mL Normal 16-232 Commun i ng/mL ty [facility] (00637) Iron [Mass/Vol] 128 ug/dL Normal 45-160 Communi mcg/dL ty [facility] (76095) Iron binding 396 Normal 250-450 Communi capacity [Mass/Vol] mcg/dL ty (calc) [facility] (97605) Iron saturation 32 Normal 16-45 % Communi [Mass fraction] (calc) ty [facility] (75729) LDH Pyruvate to 175 U/L Normal 120-250 Communi lactate reaction U/L ty [Catalytic Health activity/Vol] [facility] (51590) Prealbumin 22 mg/dL Normal 17-34 Communi [Mass/Vol] mg/dL [facility] ([id number]) laboratory on 2020-02-12 Albumin [Mass/Vol] 4.4 g/dL Normal 3.6-5.1 Communi g/dL [facility] ([id number]) Albumin/Globulin 2.3 {ratio} Normal 1.0-2.5 Communi [Mass ratio] (calc) ty [facility] (57145) ALP [Catalytic 95 U/L Normal 37-153 U/L Communi activity/Vol] [facility] (34900) ALT [Catalytic 31 U/L High 6-29 U/L Communi activity/Vol] [facility] (15121) AST [Catalytic 35 U/L Normal 10-35 U/L Communi activity/Vol] [facility] (38487) Basophils (Bld) 0.058 10*3/uL Normal 0-200 Communi [#/Vol] cells/uL [facility] (78454) Basophils/100 WBC 1 % Normal % Communi (Bld) [facility] (32399) Bilirubin [Mass/Vol] 0.9 mg/dL Normal 0.2-1.2 Commu ni mg/dL [facility] (81918) Calcium [Mass/Vol] 9.9 mg/dL Normal 8.6-10.4 Communi mg/dL [facility] (90432) Chloride [Moles/Vol] 90 mmol/L Low 98-110 Commu ni mmol/L ty [facility] (44836) CO2 [Moles/Vol] 30 mmol/L Normal 20-32 Communi mmol/L ty [facility] (76163) Creatinine 0.51 mg/dL Normal 0.50-0.99 Communi [Mass/Vol] mg/dL ty [facility] (07721) Eosinophils (Bld) 0.058 10*3/uL Normal 15-500 Commun i [#/Vol] cells/uL ty [facility] (50910) Eosinophils/100 WBC 1 % Normal % Commun i (Bld) ty [facility] (16365) Erythrocyte 12.0 % Normal 11.0-15.0 Communi distribution width % ty (RBC) [Ratio] [facility] ([id number]) Free T4 [Mass/Vol] 1.4 ng/dL Normal 0.8-1.8 Communi ng/dL ty [facility] (56400) GFR/1.73 sq 121 mL/min/{1.73_m2} Normal > OR = 60 Commu ni M.predicted among mL/min/1.7 ty blacks MDRD 3m2 Health (S/P/Bld) [Vol Center rate/Area] [place] [facility] ([id number]) GFR/1.73 sq 105 mL/min/{1.73_m2} Normal > OR = 60 Commu ni M.predicted MDRD mL/min/1.7 ty (S/P/Bld) [Vol 3m2 Health rate/Area] [facility] (05314) Globulin (S) 1.9 g/dL Normal 1.9-3.7 Communi [Mass/Vol] g/dL ty (calc) [facility] (93638) Glucose [Mass/Vol] 85 mg/dL Normal 65-99 Communi mg/dL ty [facility] (88492) Hematocrit (Bld) 58.0 % High 35.0-45.0 Communi [Volume fraction] % ty [facility] (38918) Hemoglobin (Bld) 19.4 g/dL High 11.7-15.5 Communi [Mass/Vol] g/dL [facility] (61990) Lymphocytes (Bld) 1.044 10*3/uL Normal 850-3900 Commun i [#/Vol] cells/uL [facility] (50487) Lymphocytes/100 WBC 18 % Normal % Commun i (Bld) [facility] (34719) MCH (RBC) [Entitic 34.4 pg High 27.0-33.0 Communi mass] pg [facility] (45612) MCHC (RBC) 33.4 g/dL Normal 32.0-36.0 Communi [Mass/Vol] g/dL [facility] (99936) MCV (RBC) [Entitic 102.8 fL High 80.0-100.0 Communi vol] fL [facility] (26474) Monocytes (Bld) 0.58 10*3/uL Normal 200-950 Communi [#/Vol] cells/uL [facility] (38561) Monocytes/100 WBC 10 % Normal % Communi (Bld) [facility] (80558) Neutrophils (Bld) 4.06 10*3/uL Normal 8028-6062 Communi [#/Vol] cells/uL [facility] (31667) Neutrophils/100 WBC 70 % Normal % Commun i (Bld) [facility] (49785) Platelet mean volume 9.1 fL Normal 7.5-12.5 Commu ni (Bld) [Entitic vol] fL [facility] (90551) Platelets (Bld) 211 10*3/uL Normal 140-400 Communi [#/Vol] Thousand/u ty L [facility] (95688) Potassium 5.2 mmol/L Normal 3.5-5.3 Communi [Moles/Vol] mmol/L [facility] (21941) Protein [Mass/Vol] 6.3 g/dL Normal 6.1-8.1 Communi g/dL ty [facility] (03929) RBC (Bld) [#/Vol] 5.64 10*6/uL High 3.80-5.10 Communi Million/uL ty [facility] (28841) Service comment . Invalid Communi (Unsp spec) [Interp] Interpreta ty tion Code [facility] () Sodium [Moles/Vol] 133 mmol/L Low 135-146 Communi mmol/L ty [facility] (13269) TSH Qn 2.66 m[IU]/L Normal 0.40-4.50 Communi mIU/L ty [facility] () Urea nitrogen 7 mg/dL Normal 7-25 mg/dL Communi [Mass/Vol] ty [facility] () Urea NOT APPLICABLE Invalid 6- Communi nitrogen/Creatinine Interpreta (calc) ty [Mass ratio] tion [facility] () WBC (Bld) [#/Vol] 5.8 10*3/uL Normal 3.8-10.8 Communi Thousand/u ty L [facility] () not yet categorized on 2019-09-21 BLO 06/20/2020~clear~yellow~none~neg~neg~neg~<=1. Invalid Communi 005~small Interpreta ty tion [facility] (91804) HTANH neg~trace Invalid Communi Interpreta ty tion Code [facility] () Lot # [id number] Invalid Communi Interpreta ty tion Code [facility] (83114) URO 0.2 Invalid Communi Interpreta ty tion [facility] () laboratory on 2019-09-21 Bacteria identified SEE NOTE Abnormal Communi Cx Nom (U) ty [facility] (05308) pH (Bld) 6.0 [pH] Invalid Communi Interpreta ty tion [facility] (45498) Protein (U) Negative Invalid Communi [Mass/Vol] Interpreta ty tion Code [facility] (12230) Social History No Information Vital Signs Date Time Vital Sign Value Performing Clinician Facil ity 03-02-2020 Body temperature 37.1 NA NA PENDING L OCATION S 11:38-0400 ([id number]) 03-02-2020 SaO2% (BldA) [Mass 97 % NA NA PENDING LOCATION [facility] 11:38-0400 fraction] ([id number]) Functional Status The data below is from unstructured sourcesNo functional status results. Mental Status No Information Advance Directives Directive Response Recor ded Date/Time Advance Directives No 8:15pm Resuscitation Status Full Code 04/30/16 8:15pm Discharge Instructions No hospital discharge instructions. Additional Source Comments This clinical document has been generated using [employer] software that has been certified by the Office of the National Coordinator for Health Information Technology (ONC 15.99.04.3023.Diam.31.00.0.422820) and the National Committee for Tub Attendant (NCQA, as an eMeasure certified technology). FOR RECORDS PERTAINING TO PATIENTS WHO ARE OR HAVE BEEN ENROLLED IN A CHEMICAL D EPENDENCY/SUBSTANCE ABUSE PROGRAM, SOME INFORMATION MAY BE OMITTED. This clinica l summary was aggregated from multiple sources. Caution should be exercised in using it in the provision of clinical care. This summary normalizes information from multiple sources, and as a consequence, information in this document may ma terially change the coding, format and clinical context of patient data. In renea tion, data may be omitted in some cases. CLINICAL DECISIONS SHOULD BE BASED ON T HE PRIMARY CLINICAL RECORDS. [employer] provides no warranty or guara ntee of the accuracy or completeness of information in this document.The followi ng information is based on time limited clinical information
[2020-03-07] MEDS ORDERED: meTOprolol SUCCINATE 100 MG (TOPROL XL) TAB PO ONE (19:30)
[2020-03-07] MEDS ORDERED: hydrALAZINE (APESOLINE) 20 MG/ML VIAL IV ONE (19:30)
[2020-03-07 19:35] LABS: PROTHROMBIN TIME PATIENT 13.1 SEC (12.2-14.7)
[2020-03-07 19:47] LABS: ALANINE AMINOTRANSFERASE 19 U/L (0-55); ALBUMIN 3.6 GM/DL (3.2-4.5); ALKALINE PHOSPHATASE 82 U/L (40-136); BILIRUBIN,TOTAL 0.6 MG/DL (0.1-1.0); BUN/CREATININE RATIO 9; CALCIUM 8.8 MG/DL (8.5-10.1); CARBON DIOXIDE 33 MMOL/L (21-32); CHLORIDE 82 MMOL/L (98-107); CREATINE KINASE 45 U/L (29-168); CREATININE SERUM 0.56 MG/DL (0.60-1.30); GFR ESTIMATED > 60; GLUCOSE 84 MG/DL (70-105); MAGNESIUM 1.6 MG/DL (1.6-2.4); POTASSIUM 4.7 MMOL/L (3.6-5.0)
[2020-03-07 19:52] LABS: SODIUM 125 MMOL/L (135-145)
[2020-03-07 19:54] LABS: ABG OXYGEN SATURATION 94 % (94-100); ABG PCO2 36 MMHG (35-45); ABG PH 7.53 (7.37-7.43); ABG PO2 44 MMHG (79-93); ABG TCO2 33.9 MMOL/L (21.0-31.0)
[2020-03-07 19:55] LABS: ALLENS TEST POS; INSPIRED O2 ROOM AIR; PATIENT TEMP 36.8; VENTILATOR NO
[2020-03-07] MEDS ORDERED: NS IV 500 ML 500 ML IV ONE (20:05)
[2020-03-07 20:09] LABS: BILIRUBIN,URINE NEGATIVE (NEGATIVE); CLARITY,URINE CLEAR; COLOR,URINE YELLOW; GLUCOSE, URINE (UA) NEGATIVE (NEGATIVE); KETONES,URINE NEGATIVE (NEGATIVE); LEUKOCYTE ESTERASE ,URINE NEGATIVE (NEGATIVE); NITRITE,URINE NEGATIVE (NEGATIVE); PH,URINE 5.5 (5-9); PROTEIN,URINE NEGATIVE (NEGATIVE)
[2020-03-07 20:18] LABS: BACTERIA,URINE TRACE /HPF; RBC,URINE 0-2 /HPF; WBC,URINE 0-2 /HPF
[2020-03-07 20:19] LABS: AMORPHOUS SEDIMENT,UR FEW AMOR URATES /LPF
--- NOTE | 2020-03-07 21:13 | NUR ---
PER PT REQUEST, PT'S DAUGHTER CONTACTED AND GIVEN UPDATE ON PT STATUS. DAUGHTER INFORMED OF CURRENT PLAN OF CARE AND INSTRUCTED TO CONTACT THE FLOOR FOR ANY UPDATES AFTER ADMISSION.
[2020-03-07 21:24] LABS: AMPHETAMINE SCREEN, URINE NEGATIVE (NEGATIVE); BARBITURATE SCREEN URINE NEGATIVE (NEGATIVE); BENZODIAZEPINES SCREEN URINE POSITIVE (NEGATIVE); CANNABINOID SCREEN, URINE NEGATIVE (NEGATIVE); COCAINE SCREEN URINE NEGATIVE (NEGATIVE); METHADONE STAT NEGATIVE (NEGATIVE); METHAMPHETAMINE SCREEN URINE S NEGATIVE (NEGATIVE); OPIATE SCREEN URINE POSITIVE (NEGATIVE); OXYCODONE STAT NEGATIVE (NEGATIVE); PROPOXYPHENE STAT NEGATIVE (NEGATIVE); TRICYCLIC ANTIDEPRESSANTS SCRE NEGATIVE (NEGATIVE)
[2020-03-07 21:30] VITALS: BP 125/79
--- NOTE | 2020-03-07 21:30 | NUR ---
TAMMIE CHOE admitted to room 426-1, with an admitting diagnosis of copd EXACERBATION, HTN, HYPOXIA, COVID PUI, ELEVATED BNP, HYPONATREMIA, on 03/07/20 from er via , accompanied by 4TH FLOOR RNS. TAMMIE CHOE introduced to surroundings, call light, bed controls, phone, TV, temperature control, lights, meal times, smoking policy, visitor policy, side rail policy, bathrooms and showers. Patient Rights given to patient in the handbook. TAMMIE CHOE verbalizes understanding that [facility] is not responsible for the loss or damage to any personal effects or valuables that are kept in the patients possession during their hospitalization.
[2020-03-07] MEDS ORDERED: hydrALAZINE (APESOLINE) 20 MG/ML VIAL IV PRN (22:15)
[2020-03-07] MEDS: NS IV 1000 ML 1,000 ML IV SCH (23:04)
[2020-03-07] MEDS: methylPREDNISolone 125 MG (Solu-MEDROL) VIAL IV SCH (23:08)
--- NOTE | 2020-03-07 23:08 | NUR ---
Dr. Alford notified that BP remains 89/58 with hr at 67. O2 is at 96% on 3L NC. New order rec to repeat cbc, bmp, Lactic Acid, NS at 250mls/hr for 1 liter. Continue to monitor bp and labs.
[2020-03-07 23:11] VITALS: BP 86/53
--- NOTE | 2020-03-07 23:36 | NUR ---
Dr. Alford notified of BP at 86/53 with hr at 74. Also informed of BP meds received in ER (Toprol 100 mg and Hydralazine 10mg), IVF going at 75 mls/hr, BNP at 928.8, and DVT score of 6. New order rec to give 1L NS bolus. Will continue to monitor BP and O2 saturation. ( will address DVT prophylaxis in AM.)
[2020-03-07 23:40] VITALS: BP 86/53
[2020-03-07] MEDS ORDERED: NS IV 1000 ML 1,000 ML IV ONE (23:45)
[2020-03-08] VITALS (9 sets, daily range): BP systolic 86–105; BP diastolic 53–67
[2020-03-08] MEDS ORDERED: NS IV 1000 ML 1,000 ML IV ONE (02:30)
[2020-03-08 03:01] LABS: BASOPHILS % (AUTO) 0 % (0-10); EOSINOPHILS % (AUTO) 0 % (0-10); HEMATOCRIT 56 % (35-52); HEMOGLOBIN 19.7 G/DL (11.5-16.0); LYMPHOCYTES # (AUTO) 0.4 X 10^3 (1.0-4.0); LYMPHOCYTES % (AUTO) 6 % (12-44); MEAN CORPUSCULAR HEMOGLOBIN 34 PG (25-34); MEAN CORPUSCULAR HGB CONC 35 G/DL (32-36); MEAN CORPUSCULAR VOLUME 96 FL (80-99); MEAN PLATELET VOLUME 9.3 FL (7.4-10.4); MONOCYTES % (AUTO) 1 % (0-12); NEUTROPHILS % (AUTO) 94 % (42-75); PLATELET COUNT 316 10^3/uL (130-400); RED CELL DISTRIBUTION WIDTH 13.1 % (10.0-14.5); WHITE BLOOD COUNT 6.4 10^3/uL (4.3-11.0)
[2020-03-08 03:11] LABS: ALBUMIN 3.2 GM/DL (3.2-4.5); CHLORIDE 93 MMOL/L (98-107); POTASSIUM 5.6 MMOL/L (3.6-5.0); SODIUM 127 MMOL/L (135-145)
[2020-03-08 03:12] LABS: CALCIUM 7.8 MG/DL (8.5-10.1)
[2020-03-08 03:13] LABS: GLUCOSE 133 MG/DL (70-105); TOTAL PROTEIN 6.1 GM/DL (6.4-8.2)
[2020-03-08 03:15] LABS: BILIRUBIN,TOTAL 0.4 MG/DL (0.1-1.0); CARBON DIOXIDE 24 MMOL/L (21-32)
[2020-03-08 03:17] LABS: ALKALINE PHOSPHATASE 88 U/L (40-136); CREATININE SERUM 0.61 MG/DL (0.60-1.30); GFR ESTIMATED > 60
[2020-03-08 03:18] LABS: BUN/CREATININE RATIO 18
[2020-03-08 03:20] LABS: ALANINE AMINOTRANSFERASE 18 U/L (0-55)
--- NOTE | 2020-03-08 03:40 | NUR ---
Dr. Alford notified of lab results. No new orders rec.
--- NOTE | 2020-03-08 03:59 | NUR ---
Dr. Alford notified of bp at 87/63 with hr at 70 and pt is resting quietly. No new orders rec. Will continue to monitor.
[2020-03-08] MEDS: methylPREDNISolone 125 MG (Solu-MEDROL) VIAL IV SCH ×2 (05:38→12:43)
[2020-03-08] MEDS ORDERED: RT-ALBUTEROL INHALER HFA (VENTOLIN HFA) 18 GM IH SCH (08:00)
[2020-03-08] MEDS ORDERED: ENOXAPARIN 30 MG/0.3 ML (LOVENOX) SYR SC SCH (09:00)
--- NOTE | 2020-03-08 10:09 | Diagnostic Imaging Report ---
EXAMINATION: Portable erect AP chest at 9:51 AM INDICATION: COPD exacerbation The heart size is within normal limits and stable when compared to 03/07/2020. The chronic pulmonary changes seen on the prior study are again evident and no different. There is still no sign of failure, pneumonia or a significant pleural effusion. The mediastinum is not widened. The osseous structures are intact. IMPRESSION: There is no evidence for active disease. When compared to the prior study, there has been no adverse change. Dictated by: Dictated on workstation # [id number]
--- NOTE | 2020-03-08 11:06 | History & Physical ---
HPI History of Present Illness: 59 yo female came to ER due to high blood pressure at home. She states that she has been taking her home blood pressure medication but was concerned her BP was still too high. She denies headache, admits some chest discomfort when her BP was high which has not persisted. She did not note particular shortness of breath, but does state she can tell her O2 gets low at times over the last month because her fingers turn blue. She does not use home oxygen and ran out of her sample inhaler about a week ago. She denies fever, cough, nasal congestion, loss of taste or smell and has no known COVID positive contacts. She smokes 1/2 ppd. She was also noted to have low sodium, which was even lower on last admission. She does admit to poor diet, drinks coffee and smokes and doesn't eat a lot. She states she drinks about 2-3 beers per week. She reports she had a kidney and liver/gallbladder US outpatient on Saturday. Source: patient Exam Limitations: no limitations Date seen by provider: Mar 08, 2020 Time Seen by Provider: 09:50 Attending Physician Aleyda Alford MD PCP Center/Se,[facility] Consult Date of Admission Mar 07, 2020 at 20:15 Home Medications Home Medications Reviewed patient Home Medication Reconciliation performed by pharmacy medication reconciliations special systems technician and/or nursing. Patients Allergies have been reviewed. Allergies Coded Allergies: No Known Drug Allergies (Unverified , 03/02/20) [id number] Hx Patient Social History Alcohol Use: Occasionally Uses Recreational Drug Use: No Smoking Status: Current Everyday Smoker Type Used: Cigarettes 2nd Hand Smoke Exposure: Yes Recent Foreign Travel: No Contact w/other who traveled: No Recent Hopitalizations: No Recent Infectious Disease Expo: No Past Medical History PMHx: HTN COPD SurgHx: BTL Appendectomy Lithotripsy Family Medical History Significant Family History: Other Conditions/Hx (is unable to recall) Review of Systems ([facility]) Constitutional: No fever EENTM: No nose congestion, No throat pain Respiratory: No cough, No short of breath Cardiovascular: see HPI Gastrointestinal: No abdominal pain, No constipation, No diarrhea, No nausea, No vomiting Genitourinary: No dysuria Musculoskeletal: No joint pain Skin: No rash Reviewed Test Results Reviewed Test Results Lab Laboratory Tests Test 03/07/20 18:50 03/07/20 19:16 03/07/20 19:50 03/07/20 21:00 Range/Units Blood Gas Puncture Site RT RAD Blood Gas Patient Temperature 36.8 Arterial Blood pH 7.53 H 7.37-7.43 Arterial Blood Partial Pressure CO2 36 35-45 MMHG Arterial Blood Partial Pressure O2 44 L 79-93 MMHG Arterial Blood HCO3 32 H 23-27 MMOL/L Arterial Blood Total CO2 33.9 H 21.0-31.0 MMOL/L Arterial Blood Oxygen Saturation 94 94-100 % Arterial Blood Base Excess 8.0 H -2.5-2.5 MMOL/L Daniel Test POS Blood Gas Ventilator Setting NO Blood Gas Inspired Oxygen ROOM AIR White Blood Count 9.6 4.3-11.0 10^3/uL Red Blood Count 5.57 4.35-5.85 10^6/uL Hemoglobin 19.2 H 11.5-16.0 G/DL Hematocrit 53 H 35-52 % Mean Corpuscular Volume 96 80-99 FL Mean Corpuscular Hemoglobin 34 25-34 PG Mean Corpuscular Hemoglobin Concent 36 32-36 G/DL Red Cell Distribution Width 12.9 10.0-14.5 % Platelet Count 303 130-400 10^3/uL Mean Platelet Volume 9.0 7.4-10.4 FL Neutrophils (%) (Auto) 72 42-75 % Lymphocytes (%) (Auto) 20 12-44 % Monocytes (%) (Auto) 8 0-12 % Eosinophils (%) (Auto) 1 0-10 % Basophils (%) (Auto) 0 0-10 % Neutrophils # (Auto) 6.9 1.8-7.8 X 10^3 Lymphocytes # (Auto) 1.9 1.0-4.0 X 10^3 Monocytes # (Auto) 0.7 0.0-1.0 X 10^3 Eosinophils # (Auto) 0.1 0.0-0.3 10^3/uL Basophils # (Auto) 0.0 0.0-0.1 10^3/uL Prothrombin Time 13.1 12.2-14.7 SEC INR Comment 1.0 0.8-1.4 Activated Partial Thromboplast Time 29 24-35 SEC Sodium Level 125 *L 135-145 MMOL/L Potassium Level 4.7 3.6-5.0 MMOL/L Chloride Level 82 L 98-107 MMOL/L Carbon Dioxide Level 33 H 21-32 MMOL/L Anion Gap 10 5-14 MMOL/L Blood Urea Nitrogen 5 L 7-18 MG/DL Creatinine 0.56 L 0.60-1.30 MG/DL Estimat Glomerular Filtration Rate > 60 BUN/Creatinine Ratio 9 Glucose Level 84 70-105 MG/DL Calcium Level 8.8 8.5-10.1 MG/DL Corrected Calcium 9.1 8.5-10.1 MG/DL Magnesium Level 1.6 1.6-2.4 MG/DL Total Bilirubin 0.6 0.1-1.0 MG/DL Aspartate Amino Transf (AST/SGOT) 18 5-34 U/L Alanine Aminotransferase (ALT/SGPT) 19 0-55 U/L Alkaline Phosphatase 82 40-136 U/L Lactate Dehydrogenase 258 H 125-220 U/L Total Creatine Kinase 45 29-168 U/L Creatine Kinase MB 3.0 <6.6 NG/ML Myoglobin 42.0 10.0-92.0 NG/ML Troponin I < 0.028 <0.028 NG/ML C-Reactive Protein High Sensitivity 0.11 0.00-0.50 MG/DL B-Type Natriuretic Peptide 928.8 H <100.0 PG/ML Total Protein 6.0 L 6.4-8.2 GM/DL Albumin 3.6 3.2-4.5 GM/DL Procalcitonin 0.01 <0.10 NG/ML Serum Alcohol 17 H <10 MG/DL Urine Color YELLOW Urine Clarity CLEAR Urine pH 5.5 5-9 Urine Specific Wisner <=1.005 1.016-1.022 Urine Protein NEGATIVE NEGATIVE Urine Glucose (UA) NEGATIVE NEGATIVE Urine Ketones NEGATIVE NEGATIVE Urine Nitrite NEGATIVE NEGATIVE Urine Bilirubin NEGATIVE NEGATIVE Urine Urobilinogen 0.2 < = 1.0 MG/DL Urine Leukocyte Esterase NEGATIVE NEGATIVE Urine RBC (Auto) NEGATIVE NEGATIVE Urine RBC 0-2 /HPF Urine WBC 0-2 /HPF Urine Squamous Epithelial Cells 2-5 /HPF Urine Crystals PRESENT H /LPF Urine Amorphous Sediment FEW ESTEFANIA URATES H /LPF Urine Bacteria TRACE /HPF Urine Casts NONE /LPF Urine Mucus NEGATIVE /LPF Urine Culture Indicated NO Urine Opiates Screen POSITIVE H NEGATIVE Urine Oxycodone Screen NEGATIVE NEGATIVE Urine Methadone Screen NEGATIVE NEGATIVE Urine Propoxyphene Screen NEGATIVE NEGATIVE Urine Barbiturates Screen NEGATIVE NEGATIVE Ur Tricyclic Antidepressants Screen NEGATIVE NEGATIVE Urine Phencyclidine Screen NEGATIVE NEGATIVE Urine Amphetamines Screen NEGATIVE NEGATIVE Urine Methamphetamines Screen NEGATIVE NEGATIVE Urine Benzodiazepines Screen POSITIVE H NEGATIVE Urine Cocaine Screen NEGATIVE NEGATIVE Urine Cannabinoids Screen NEGATIVE NEGATIVE Test 03/08/20 01:00 03/08/20 02:55 03/08/20 07:25 Range/Units Erythrocyte Sedimentation Rate 1 0-30 MM/HR Troponin I < 0.028 < 0.028 <0.028 NG/ML Thyroid Stimulating Hormone (TSH) 1.67 0.35-4.94 UIU/ML White Blood Count 6.4 4.3-11.0 10^3/uL Red Blood Count 5.83 4.35-5.85 10^6/uL Hemoglobin 19.7 H 11.5-16.0 G/DL Hematocrit 56 H 35-52 % Mean Corpuscular Volume 96 80-99 FL Mean Corpuscular Hemoglobin 34 25-34 PG Mean Corpuscular Hemoglobin Concent 35 32-36 G/DL Red Cell Distribution Width 13.1 10.0-14.5 % Platelet Count 316 130-400 10^3/uL Mean Platelet Volume 9.3 7.4-10.4 FL Neutrophils (%) (Auto) 94 H 42-75 % Lymphocytes (%) (Auto) 6 L 12-44 % Monocytes (%) (Auto) 1 0-12 % Eosinophils (%) (Auto) 0 0-10 % Basophils (%) (Auto) 0 0-10 % Neutrophils # (Auto) 6.0 1.8-7.8 X 10^3 Lymphocytes # (Auto) 0.4 L 1.0-4.0 X 10^3 Monocytes # (Auto) 0.0 0.0-1.0 X 10^3 Eosinophils # (Auto) 0.0 0.0-0.3 10^3/uL Basophils # (Auto) 0.0 0.0-0.1 10^3/uL Sodium Level 127 L 135-145 MMOL/L Potassium Level 5.6 H 3.6-5.0 MMOL/L Chloride Level 93 L 98-107 MMOL/L Carbon Dioxide Level 24 21-32 MMOL/L Anion Gap 10 5-14 MMOL/L Blood Urea Nitrogen 11 7-18 MG/DL Creatinine 0.61 0.60-1.30 MG/DL Estimat Glomerular Filtration Rate > 60 BUN/Creatinine Ratio 18 Glucose Level 133 H 70-105 MG/DL Lactic Acid Level 1.89 0.50-2.00 MMOL/L Calcium Level 7.8 L 8.5-10.1 MG/DL Corrected Calcium 8.4 L 8.5-10.1 MG/DL Total Bilirubin 0.4 0.1-1.0 MG/DL Aspartate Amino Transf (AST/SGOT) 22 5-34 U/L Alanine Aminotransferase (ALT/SGPT) 18 0-55 U/L Alkaline Phosphatase 88 40-136 U/L B-Type Natriuretic Peptide 855.2 H <100.0 PG/ML Total Protein 6.1 L 6.4-8.2 GM/DL Albumin 3.2 3.2-4.5 GM/DL Radiology 03/07: CXR: IMPRESSION: 1. Hyperexpanded lungs, which can be seen with COPD. No focal consolidations. If the patient is high risk for lung malignancy, consider further evaluation with CT chest. Physical Exam-([facility]) Physical Exam Vital Signs VS - Last 72 Hours, by Label 03/07/20 03/07/20 03/07/20 03/07/20 18:44 18:55 19:22 21:25 Temp 36.8 Pulse 101 71 Resp 24 19 B/P (MAP) 166/123 (137) 98/70 Pulse Ox 98 100 97 O2 Delivery Room Air Nasal Cannula Nasal Cannula Nasal Cannula O2 Flow Rate 2.00 2.00 2.00 03/07/20 03/07/20 03/07/20 03/07/20 21:30 21:30 21:30 23:02 Temp 36.4 36.4 Pulse 74 74 83 Resp 20 20 B/P (MAP) 125/79 125/79 (94) Pulse Ox 92 92 O2 Delivery Nasal Cannula Nasal Cannula Nasal Cannula O2 Flow Rate 2.00 2.00 3.00 2.00 03/07/20 03/07/20 03/08/20 03/08/20 23:11 23:40 00:02 00:52 Temp 36.1 36.8 Pulse 74 101 69 Resp 16 B/P (MAP) 86/53 (64) 97/60 (72) Pulse Ox 93 93 94 95 O2 Delivery Nasal Cannula Nasal Cannula Nasal Cannula O2 Flow Rate 3.00 3.00 3.00 FiO2 32 03/08/20 03/08/20 03/08/20 03/08/20 01:00 01:51 02:05 03:47 Temp 37.2 Pulse 74 67 74 Resp 18 B/P (MAP) 89/58 (68) 86/53 (64) Pulse Ox 96 96 O2 Delivery Nasal Cannula Nasal Cannula Nasal Cannula O2 Flow Rate 3.00 3.00 3.00 03/08/20 03/08/20 03/08/20 03/08/20 06:41 06:44 07:32 08:00 Pulse 60 62 B/P (MAP) 97/63 (74) Pulse Ox 96 O2 Delivery Nasal Cannula Nasal Cannula Nasal Cannula O2 Flow Rate 2.00 2.00 2.00 03/08/20 03/08/20 08:00 10:44 Temp 37.2 37.2 Pulse 67 64 Resp 16 B/P (MAP) 88/56 (67) Pulse Ox 94 92 O2 Delivery Nasal Cannula O2 Flow Rate 3.00 FiO2 28 Capillary Refill : Less Than 3 Seconds General Appearance: no apparent distress, thin Respiratory: lungs clear, normal breath sounds Cardiovascular: regular rate, rhythm, no murmur Gastrointestinal: normal bowel sounds, non tender, soft Extremities: no pedal edema Neurologic/Psychiatric: alert, normal mood/affect Skin: normal color, warm/dry Assessment/Plan Assessment/Plan Admission Status: Inpatient Order (span 2 midnights) Reason for Inpatient Admission: Severe COPD exacerbation requiring new supplemental oxygen and marked hyponatremia (1) Hypotension Status: Acute Assessment & Plan: Pt was hypertensive on arrival, but had marked drop in blood pressure in response to Toprol XL 100 mg and hydralazine 10 mg IV given in ER, and required 2 liter fluid bolus overnight to maintain blood pressure in the 80s to 90s. She has been asymptomatic. Given her hyponatremia and hyperkalemia, consider adrenal insufficiency although considered less likely given chronic hypertension and she also is receiving methylprednisolone (though noted that methylpred has lower mineralocorticoid activity). Currently asymptomatic and maintaining BP, continuing lower rate of NS @ 75mls/hr due to elevated BNP. Qualifiers: Qualified Codes: I95.2 - Hypotension due to drugs (2) Hyperkalemia Status: Acute (3) Hyponatremia Status: Chronic Assessment & Plan: Noted at previous visit and was worse at that time. Appears patient requested quick d/c at that time. Will check urine electrolytes, TSH. Consider AM cortisol and ACTH stim pending results of urine and after she is off of steroid treatment for COPD exacerbation. May be secondary to high fluid, low protein diet. (4) Hypoxia Status: Acute Assessment & Plan: Suspect secondary to COPD exacerbation, she is hoping to go home as soon as possible, will likely need home supplemental oxygen. RT study today. (5) COPD exacerbation Status: Acute Assessment & Plan: Solumedrol, albuterol, supplemental O2 as needed. Discussed smoking cessation. (6) Elevated brain natriuretic peptide (BNP) level Status: Acute Assessment & Plan: Check echo. CXR without evidence of pulmonary edema and no worsening hypoxia with fluid bolus overnight. (7) Uncontrolled hypertension Status: Acute (8) Person under investigation for COVID-19 Status: Acute (9) DVT prophylaxis Status: Acute Assessment & Plan: Enoxaparin Clinical Quality Measures DVT/VTE Risk/Contraindication: Risk Factor Score Per Nursin RFS Level Per Nursing on Admit: 4+=Very High ALEYDA ALFORD MD Mar 08, 2020 11:06
[2020-03-08] MEDS: NS IV 1000 ML 1,000 ML IV SCH (12:43)
[2020-03-08] MEDS: RT-ALBUTEROL INHALER HFA (VENTOLIN HFA) 18 GM IH SCH ×2 (14:23→18:20)
[2020-03-08] MEDS ORDERED: CEFD300C3 PO (14:36)
--- NOTE | 2020-03-08 14:37 | NUR ---
pt was off O2 for 5 minutes before she desated to 86%. pt was placed back on [facility] and walked to make sure that was an adequate amount of oxygen. pt did well on [facility] during exercise. Addendum: 03/08/20 at 1437 by JAYDE CASTRO RT Amended: Links added.
--- NOTE | 2020-03-08 15:38 | NUR ---
SPOKE WITH THE PT (I CALLED HER ROOM PHONE) AND CALLED [facility] TO COMPLETE THE MED REC THE PT WAS HERE PREVIOUSLY AND I SPOKE WITH HER AND COMPLETED THE MED REC ON 03-03-2020 03-07-2020 SYMBICORT 160/4.5 #1/30DS 03-03-2020 CEFDINIR 300MG #10/5DS 03-03-2020 PREDNISONE 10MG DOSE [place] #21 02-29-2020 PROPRANOLOL 10MG #60/30DS 02-23-2020 ASPIRIN ER 81MG #100/100DS 02-23-2020 PANTOPRAZOLE 20MG #30/30DS 02-23-2020 AMLODIPINE 5MG #30/30DS OTC MEDS: IBUPROFEN Addendum: 03/10/20 at 0909 by CANDACE RICE [facility] WHEN PT WAS BEING DISCHARGED ON 03-09-2020 (DURING [facility] DOWNTIME) THE NURSE LET ME KNOW THE PT HAD A BOTTLE FROM [employer] WITH HER THAT WASNT LISTED IN HER MEDS. I WENT AND SPOKE WITH THE PT AND THERE WAS A BOTTLE OF LISINOPRIL 20MG (DATED 03-06-2020 #30) WHEN I ASKED THE PT ABOUT THIS SHE SAID THAT YES SHE TAKES THIS AND SHE WAS SWITCHED FROM AMLODIPINE TO LISINOPRIL .THE PT ASSUMED WE KNEW THE CHANGES AND DIDNT MENTION IT WHEN I CALLED TO COMPLETE HER MED REC ON 03-08-2020. PT IS ALREADY DISCHARGED SO THE MED REC COULD NOT BE UPDATED
[2020-03-08] MEDS: RT-ALBUTEROL INHALER HFA (VENTOLIN HFA) 18 GM IH PRN ×2 (18:17→21:15)
[2020-03-08] MEDS ORDERED: NON-FORMULARY MEDICATION 1 EA EA (Ibuprofen 400 MG) PO PRN (21:30)
[2020-03-08] MEDS ORDERED: IBUPROFEN TABLET 200 MG TAB PO PRN (21:45)
[2020-03-09] MEDS ORDERED: predniSONE 20 MG TAB PO SCH (07:00)
[2020-03-09] MEDS ORDERED: ASPIRIN E.C. 81 MG (ECOTRIN) TAB PO SCH (09:00)
[2020-03-09] MEDS ORDERED: PANTOPRAZOLE 20 MG TABLET (PROTONIX) PO SCH (09:00)
[2020-03-10 07:12] LABS: BUN/CREATININE RATIO 20; CALCIUM 8.1 MG/DL (8.5-10.1); CARBON DIOXIDE 26 MMOL/L (21-32); CHLORIDE 97 MMOL/L (98-107); CREATININE SERUM 0.64 MG/DL (0.60-1.30); GFR ESTIMATED > 60; GLUCOSE 139 MG/DL (70-105); POTASSIUM 4.6 MMOL/L (3.6-5.0); SODIUM 131 MMOL/L (135-145)
[2020-03-10 07:14] LABS: HEMOGLOBIN 16.4 G/DL (11.5-16.0); RED CELL DISTRIBUTION WIDTH 13.6 % (10.0-14.5); WHITE BLOOD COUNT 19.7 10^3/uL (4.3-11.0)
[2020-03-10 07:15] LABS: MEAN PLATELET VOLUME 9.3 FL (7.4-10.4)
--- NOTE | 2020-03-10 07:51 | Discharge Summary ---
Discharge Summary Hospital Course Problems/Diagnosis: (1) Hypotension Status: Acute Assessment & Plan: Pt was hypertensive on arrival, but had marked drop in blood pressure in response to Toprol XL 100 mg and hydralazine 10 mg IV given in ER, and required 2 liter fluid bolus overnight to maintain blood pressure in the 80s to 90s. She has been asymptomatic. Given her hyponatremia and hyperkalemia, consider adrenal insufficiency although considered less likely given chronic hypertension and she also is receiving methylprednisolone (though noted that methylpred has lower mineralocorticoid activity). Currently asymptomatic and maintaining BP, continuing lower rate of NS @ 75mls/hr due to elevated BNP. BP improved at d/c, but still holding home meds until BP above 120/80s at home. Qualifiers: Qualified Codes: I95.2 - Hypotension due to drugs (2) Hyperkalemia Status: Acute (3) Hyponatremia Status: Chronic Assessment & Plan: Noted at previous visit and was worse at that time. Appears patient requested quick d/c at that time. Will check urine electrolytes, TSH. Consider AM cortisol and ACTH stim pending results of urine and after she is off of steroid treatment for COPD exacerbation. May be secondary to high fluid, low protein diet. Results pending at d/c. (4) Hypoxia Status: Acute Assessment & Plan: Suspect secondary to COPD exacerbation, she is hoping to go home as soon as possible, will likely need home supplemental oxygen. RT study today. Requesting d/c and was discharged with home oxygen. (5) COPD exacerbation Status: Acute Assessment & Plan: Solumedrol, albuterol, supplemental O2 as needed. Discussed smoking cessation. Steroid taper on d/c and home O2. (6) Elevated brain natriuretic peptide (BNP) level Status: Acute Assessment & Plan: CXR without evidence of pulmonary edema and no worsening hypoxia with fluid bolus overnight. (7) Uncontrolled hypertension Status: Acute Assessment & Plan: On admit to ER, however was hypotensive after treatment and did not return to hypertension before d/c. (8) Person under investigation for COVID-19 Status: Resolved Resolution Date/Time: 03/11/20 @ 15:10 Assessment & Plan: Negative Hospital Course Date of Admission: Mar 07, 2020 at 20:15 Admission Diagnosis : Family Physician/Provider: [place] Date of Discharge: 03/10/20 Discharge Diagnosis: See problem list Hospital Course: See problem list Labs and Pending Lab Test: Home Meds Active Prednisone 10 Mg Tab.ds.pk 10 Mg PO DAILY Take 6 tabs(60mg)daily,decrease by 1 tab(10MG)daily. Reported Cefdinir 300 Mg Capsule 300 Mg PO BID FILLED 03-03-2020 #10/5 DAY SUPPLY Propranolol HCl 10 Mg Tablet 10 Mg PO BID Ibuprofen 200 Mg Capsule 400 Mg PO Q6H PRN Aspirin EC (Aspirin) 81 Mg Tablet.dr 81 Mg PO DAILY Amlodipine Besylate 5 Mg Tablet 5 Mg PO DAILY Protonix (Pantoprazole Sodium) 20 Mg Tablet.dr 20 Mg PO DAILY Symbicort 160-4.5 Mcg Inhaler (Budesonide/Formoterol Fumarate) 10.2 Gm Hfa.aer.ad 2 Puff IH BID Assessment/Pt DC Instructions See above Discharge Diet: No Restrictions Activity as Tolerated: Yes Orders-Post D/C & Referrals Pneu Vac Indicated: Yes Discharge Physical Examination Allergies: Coded Allergies: No Known Drug Allergies (Unverified , 03/02/20) General Appearance: Anxious, Thin Respiratory: Wheezing (mild end expiratory) Cardiovascular: Regular Rate, Rhythm, No Murmur Skin: Normal Color, Warm/Dry Neurologic/Psychiatric: Alert, Normal Mood/Affect Clinical Quality Measures DVT/VTE Risk/Contraindication: Risk Factor Score Per Nursin RFS Level Per Nursing on Admit: 4+=Very High LANRE MONTERO MD Mar 10, 2020 07:51
[2020-03-10] MEDS ORDERED: ADVAIR HFA 115/21 MCG INHALER 8 GM IH SCH (08:00)
== END 2020-03-09 12:38 | disposition home or self-care (01) | DRG 191 ==
LOC: EDUNIT# 18:42 → ER 18:43 → 4TH 20:15
PROVIDERS: ADMIT Family Medicine; ATTEND Family Medicine
DX: J44.1 Chronic obstructive pulmonary disease with (acute) exacerbation (principal); E87.1 Hypo-osmolality and hyponatremia; I95.2 Hypotension due to drugs; T46.5X5A Adverse effect of other antihypertensive drugs, initial encounter; T44.7X5A Adverse effect of beta-adrenoreceptor antagonists, initial encounter; R09.02 Hypoxemia; I10 Essential (primary) hypertension; F17.210 Nicotine dependence, cigarettes, uncomplicated; Z20.828 Contact with and (suspected) exposure to other viral communicable diseases; Z87.442 Personal history of urinary calculi
CPT/HCPCS: 36415; 71045; 80048; 80053; 80306; 80320; 81000; 82436; 82550; 82553; 82805; 83605; 83615; 83735; 83874; 83880; 83935; 84133; 84145; 84300; 84443; 84484; 85025; 85027; 85610; 85652; 85730; 86141; 87635; 93005; 93041; 93306; 94640; 94664; 94760; 94761

== ENCOUNTER 2020-08-15 10:27 | Emergency (ER) | payer MEDICAID ==
[~2020-08-15] VITALS: Ht 165 cm; Wt 44.0 kg
[~2020-08-15 10:27] MED LIST changes: +AMLO-250 PO; -AMLO5TAB9 PO; +ASPI-1238 PO; -ASPI-983 PO
[2020-08-15] MEDS ORDERED: LACTATED RINGERS 1,000 ML IV STA (11:15)
--- NOTE | 2020-08-15 11:15 | ED General ---
General Chief Complaint: General Problems/Pain Stated Complaint: DEHYDRATION, UTI Source of Information: Patient History of Present Illness Date Seen by Provider: Aug 15, 2020 Time Seen by Provider: 11:10 Initial Comments 60-year-old female reports that she "feels dehydrated, like her electrolytes are out of whack. Patient also complains of some burning and stinging when she urinates., That her mouth is dry. Patient presents here after being seen in the clinic and have the labs drawn. She denies any fever, chills, nausea or vomiting. Is having shortness of breath, she does chronically wear oxygen from COPD. Allergies and Home Medications Allergies Coded Allergies: No Known Drug Allergies (Unverified , 03/02/20) Home Medications Amlodipine Besylate 5 Mg Tablet, 5 MG PO DAILY, (Reported) Aspirin 81 Mg Tablet.dr, 81 MG PO DAILY, (Reported) Budesonide/Formoterol Fumarate 10.2 Gm Hfa.aer.ad, 2 PUFF IH BID, (Reported) Cefdinir 300 Mg Capsule, 300 MG PO BID, (Reported) FILLED 03-03-2020 #10/5 DAY SUPPLY Ibuprofen 200 Mg Capsule, 400 MG PO Q6H PRN for PAIN-MILD (1-4), (Reported) Pantoprazole Sodium 20 Mg Tablet.dr, 20 MG PO DAILY, (Reported) Prednisone 10 Mg Tab.ds.pk, 10 MG PO DAILY Take 6 tabs(60mg)daily,decrease by 1 tab(10MG)daily. Prescribed by: STEPHANY MARTELL on 03/03/20 1109 Propranolol HCl 10 Mg Tablet, 10 MG PO BID, (Reported) Patient Home Medication List Home Medication List Reviewed: Yes Review of Systems Review of Systems Constitutional: No chills, No fever EENTM: see HPI Respiratory: see HPI; No cough Cardiovascular: No chest pain, No palpitations Gastrointestinal: No abdominal pain, No diarrhea, No nausea, No vomiting Genitourinary: see HPI, dysuria, frequency Musculoskeletal: no symptoms reported Skin: no symptoms reported Psychiatric/Neurological: No Symptoms Reported Hematologic/Lymphatic: No Symptoms Reported Immunological/Allergic: no symptoms reported Past Hwbemya-Pgvvbf-Vkqlbf Hx Past Med/Social Hx: Reviewed Nursing Past Med/Soc Hx Patient Social History Alcohol Beverage of Choice: Beer Type Used: Cigarettes 2nd Hand Smoke Exposure: Yes Recent Hopitalizations: No Seasonal Allergies Seasonal Allergies: Yes Past Medical History Surgeries: Yes (C-SECITON X 2; APPY WITH LAST ; BTL 1992; LITHOTRIPSY X 2 ) Appendectomy, Section, Renal, Tubal Ligation Respiratory: Yes COPD Currently Using CPAP: No Currently Using BIPAP: No Cardiac: Yes Hypertension, Palpitations Neurological: No Reproductive Disorders: No Genitourinary: Yes (LITHOTRIPSY X 2 ) Kidney Stones Gastrointestinal: No Musculoskeletal: No Endocrine: No HEENT: No Cancer: No Psychosocial: No Integumentary: No Blood Disorders: No Family Medical History Congestive heart failure 19 MOTHER FH: pancreatic cancer 19 FATHER Other Conditions/Hx Physical Exam Vital Signs Vital Signs - First Documented 08/15/20 11:06 Temp 37.0 Pulse 75 Resp 16 B/P (MAP) 144/70 (94) Pulse Ox 98 O2 Delivery Room Air Capillary Refill : Height, Weight, BMI Height: 5'6" Weight: 88lbs. 9oz. 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 as Tested Skin: Normal Color, Warm/Dry Progress/Results/Core Measures Suspected Sepsis SIRS Temperature: Pulse: Respiratory Rate: Laboratory Tests 08/15/20 11:28: White Blood Count 8.9 Blood Pressure / Mean: Laboratory Tests 08/15/20 11:28: Creatinine 0.66, Platelet Count 285 Results/Orders Lab Results Laboratory Tests Test 08/15/20 11:19 08/15/20 11:28 Range/Units Urine Color ORANGE Urine Clarity CLEAR Urine pH 7.5 5-9 Urine Specific [place] <=1.005 1.016-1.022 Urine Protein NEGATIVE NEGATIVE Urine Glucose (UA) NEGATIVE NEGATIVE Urine Ketones NEGATIVE NEGATIVE Urine Nitrite POSITIVE H NEGATIVE Urine Bilirubin NEGATIVE NEGATIVE Urine Urobilinogen 1.0 < = 1.0 MG/DL Urine Leukocyte Esterase NEGATIVE NEGATIVE Urine RBC (Auto) NEGATIVE NEGATIVE Urine RBC RARE /HPF Urine WBC RARE /HPF Urine Squamous Epithelial Cells 2-5 /HPF Urine Crystals NONE /LPF Urine Bacteria FEW H /HPF Urine Casts NONE /LPF Urine Mucus NEGATIVE /LPF Urine Culture Indicated YES White Blood Count 8.9 4.3-11.0 10^3/uL Red Blood Count 3.84 3.80-5.11 10^6/uL Hemoglobin 12.8 11.5-16.0 g/dL Hematocrit 38 35-52 % Mean Corpuscular Volume 98 80-99 fL Mean Corpuscular Hemoglobin 33 25-34 pg Mean Corpuscular Hemoglobin Concent 34 32-36 g/dL Red Cell Distribution Width 11.8 10.0-14.5 % Platelet Count 285 130-400 10^3/uL Mean Platelet Volume 8.8 L 9.0-12.2 fL Immature Granulocyte % (Auto) 0 % Neutrophils (%) (Auto) 79 H 42-75 % Lymphocytes (%) (Auto) 14 12-44 % Monocytes (%) (Auto) 6 0-12 % Eosinophils (%) (Auto) 1 0-10 % Basophils (%) (Auto) 1 0-10 % Neutrophils # (Auto) 7.0 1.8-7.8 10^3/uL Lymphocytes # (Auto) 1.3 1.0-4.0 10^3/uL Monocytes # (Auto) 0.5 0.0-1.0 10^3/uL Eosinophils # (Auto) 0.0 0.0-0.3 10^3/uL Basophils # (Auto) 0.0 0.0-0.1 10^3/uL Immature Granulocyte # (Auto) 0.0 0.0-0.1 10^3/uL Sodium Level 131 L 135-145 MMOL/L Potassium Level 3.7 3.6-5.0 MMOL/L Chloride Level 92 L 98-107 MMOL/L Carbon Dioxide Level 32 21-32 MMOL/L Anion Gap 7 5-14 MMOL/L Blood Urea Nitrogen 3 L 7-18 MG/DL Creatinine 0.66 0.60-1.30 MG/DL Estimat Glomerular Filtration Rate > 60 BUN/Creatinine Ratio 5 Glucose Level 98 70-105 MG/DL Calcium Level 9.4 8.5-10.1 MG/DL My Orders Orders - LEIJA,FILOMENA L DO Basic Metabolic Panel (08/15/20 11:15) Cbc With Automated Diff (08/15/20 11:15) Ua Culture If Indicated (08/15/20 11:15) Lactated Ringers (Lr 1000 Ml Iv Solution (08/15/20 11:15) Ed Iv/Invasive Line Start (08/15/20 11:15) Urine Culture (08/15/20 11:19) Vital Signs/I&O 08/15/20 11:06 Temp 37.0 Pulse 75 Resp 16 B/P (MAP) 144/70 (94) Pulse Ox 98 O2 Delivery Room Air Capillary Refill : Progress Note : Time: 12:24 Progress Note Patient feeling better following IV fluids. Patient's urine is borderline for a UTI. However because she is having symptoms I will treat her for a 3-day supply of Macrobid. Patient stable will be discharged Departure Impression Primary Impression: Urinary tract infection Qualified Codes: N30.00 - Acute cystitis without hematuria Disposition: 01 HOME, SELF-CARE Condition: Stable Departure-Patient Inst. Referrals: [facility]/ (PCP) Primary Care Physician SHADIA JUARES APRN (Family) Primary Care Physician Patient Instructions: Urinary Tract Infection, Adult (DC) Scripts Nitrofurantoin Macrocrystal (Nitrofurantoin) 100 Mg Capsule 100 MG PO BID for 3 Days, #6 CAP Prov: FILOMENA LEIJA DO 08/15/20 FILOMENA LEIJA DO Aug 15, 2020 11:14
[2020-08-15 11:31] LABS: BILIRUBIN,URINE NEGATIVE (NEGATIVE); CLARITY,URINE CLEAR; COLOR,URINE ORANGE; GLUCOSE, URINE (UA) NEGATIVE (NEGATIVE); KETONES,URINE NEGATIVE (NEGATIVE); LEUKOCYTE ESTERASE ,URINE NEGATIVE (NEGATIVE); NITRITE,URINE POSITIVE (NEGATIVE); PH,URINE 7.5 (5-9); PROTEIN,URINE NEGATIVE (NEGATIVE)
[2020-08-15 11:40] LABS: BASOPHILS % (AUTO) 1 % (0-10); EOSINOPHILS % (AUTO) 1 % (0-10); HEMATOCRIT 38 % (35-52); HEMOGLOBIN 12.8 g/dL (11.5-16.0); LYMPHOCYTES # (AUTO) 1.3 10^3/uL (1.0-4.0); LYMPHOCYTES % (AUTO) 14 % (12-44); MEAN CORPUSCULAR HEMOGLOBIN 33 pg (25-34); MEAN CORPUSCULAR HGB CONC 34 g/dL (32-36); MEAN CORPUSCULAR VOLUME 98 fL (80-99); MEAN PLATELET VOLUME 8.8 fL (9.0-12.2); MONOCYTES # (AUTO) 0.5 10^3/uL (0.0-1.0); MONOCYTES % (AUTO) 6 % (0-12); NEUTROPHILS % (AUTO) 79 % (42-75); PLATELET COUNT 285 10^3/uL (130-400); WHITE BLOOD COUNT 8.9 10^3/uL (4.3-11.0)
[2020-08-15 11:42] LABS: BACTERIA,URINE FEW /HPF; RBC,URINE RARE /HPF; WBC,URINE RARE /HPF
[2020-08-15 11:52] LABS: CHLORIDE 92 MMOL/L (98-107); POTASSIUM 3.7 MMOL/L (3.6-5.0); SODIUM 131 MMOL/L (135-145)
[2020-08-15 11:53] LABS: CALCIUM 9.4 MG/DL (8.5-10.1)
[2020-08-15 11:54] LABS: GLUCOSE 98 MG/DL (70-105)
[2020-08-15 11:55] LABS: CARBON DIOXIDE 32 MMOL/L (21-32)
[2020-08-15 11:58] LABS: CREATININE SERUM 0.66 MG/DL (0.60-1.30); GFR ESTIMATED > 60
[2020-08-15 11:59] LABS: BUN/CREATININE RATIO 5
[2020-08-15] MEDS ORDERED: NITR100C PO (12:26)
[2020-08-15 12:37] VITALS: BP 158/95
--- NOTE | 2020-08-15 12:38 | NUR ---
FAMILY UPDATED ET NOTIFIED SHE WAS READY TO BE PICKED UP.
== END 2020-08-15 12:37 | disposition home or self-care (01) ==
LOC: EDUNIT# 10:27 → ER 10:28
DX: N39.0 Urinary tract infection, site not specified (principal); I10 Essential (primary) hypertension; J44.9 Chronic obstructive pulmonary disease, unspecified; Z82.49 Family history of ischemic heart disease and other diseases of the circulatory system; Z80.0 Family history of malignant neoplasm of digestive organs; Z77.22 Contact with and (suspected) exposure to environmental tobacco smoke (acute) (chronic); Z79.82 Long term (current) use of aspirin; Z79.52 Long term (current) use of systemic steroids
CPT/HCPCS: 36415; 80048; 81000; 85025; 87088

== ENCOUNTER → 2020-09-09 | Outpatient (CLI) | payer MEDICAID ==
[~2020-09-09] MED LIST changes: +CATHETER FLUSH 10 ML SYR IV PRN; +HOLD METFORMIN - RECEIVED CONTRAST 20 ML VIAL IV SCH; +IOHEXOL 350 MG/ML 100 ML (OMNIPAQUE 350) VIAL IV ONE; +NITR100C PO; +NS 100 ML (IVPB) BAG IV ONE
--- NOTE | 2020-09-09 09:35 | Diagnostic Imaging Report ---
INDICATION: Carotid stenosis COMPARISON: I have no priors or relevant comparison. Post IV contrast-enhanced CT angiogram neck performed with 2-D and 3-D reconstructions. The visualized aortic arch normal in caliber, the branching pattern of the great vessels normal. Proximal to the takeoff of the right vertebral artery there is severe stenosis of the right subclavian on the basis of soft greater than hard plaque. The lumen is narrowed by greater than 80%. Beyond that focal stenosis, the right subclavian was well opacified and normal in caliber. The right vertebral artery itself is small, the left is dominant. Neither vertebral artery showed focal pathology or segmental occlusion however directional flow cannot be addressed at CT. If there are clinical features of a right subclavian steal, consider carotid Doppler as follow-up. The intradural segments of the vertebral arteries, the basilar and the visualized proximal DEVICE PROCESSING ENGINEER segments appeared unremarkable. There is bilateral predominantly calcified but partially soft plaque at the distal common carotids, the bulbs, and extending through the bifurcations into the proximal ICAs bilaterally. On the left, this results in 20% or less stenosis. On the right, the proximal ICA and bifurcation narrowed by less than 50%. The remaining cervical internal carotid showed non-stenosing eccentric calcified plaque but no findings of hemodynamically significant carotid stenosis. The major external carotid branches unremarkable. The intracranial ICAs were widely patent as were the visualized proximal anterior and middle cerebral arterial segments. IMPRESSION: 1. Right greater than left carotid atherosclerotic disease but no hemodynamically significant carotid stenosis. 2. High-grade stenosis proximal right subclavian artery, prevertebral with widely patent dominant left vertebral and small caliber right vertebral. 3. No visualized intracranial acute arterial pathology or significant stenosis. 4. Not mentioned above, at the very top of the [id number] of this exam, there is a right frontal convexity likely extra-axial enhancing mass partially visualized measuring at least 2.4 cm in long axis by at least 1.1 cm in thickness. This is probably a meningioma however nonemergent outpatient pre and postcontrast enhanced brain MRI recommended for its full evaluation. Dictated by: Dictated on workstation # [id number]
== END ==
LOC: RAD 08:45
PROVIDERS: ATTEND Internal Medicine Cardiovascular Disease
DX: I65.23 Occlusion and stenosis of bilateral carotid arteries (principal)
CPT/HCPCS: 70498

== ENCOUNTER → 2020-10-27 | Outpatient (CLI) | payer MEDICAID ==
[~2020-10-27] MED LIST changes: -CATHETER FLUSH 10 ML SYR IV PRN; -HOLD METFORMIN - RECEIVED CONTRAST 20 ML VIAL IV SCH; -IOHEXOL 350 MG/ML 100 ML (OMNIPAQUE 350) VIAL IV ONE; -NS 100 ML (IVPB) BAG IV ONE
--- NOTE | 2020-10-27 16:11 | Diagnostic Imaging Report ---
EXAMINATION: CT Chest without contrast. TECHNIQUE: Multiple contiguous axial images were obtained through the chest without the use of intravenous contrast. All CT scans use one or more of the following dose optimizing techniques: automated exposure control, MA and/or KvP adjustment based on a patient size and exam type, or iterative reconstruction. HISTORY: Emphysema, lung nodule follow-up. COMPARISON: CTA chest 03/24/2020. FINDINGS: Thyroid: The thyroid is normal. Mediastinum: Heart size is normal without significant pericardial effusion. Calcifications of the aorta and coronary vessels. Thoracic aorta is normal in caliber. A right subclavian artery stent is present. No suspicious lymphadenopathy. Lungs and airways: There are background emphysematous changes of the lungs. Overall stable appearance of multiple focal nodules within the superior left upper lobe compared to 03/24/2020. No new suspicious pulmonary lesion. No new consolidation, pleural effusion, or pneumothorax. The airways are normal. Upper abdomen: There are punctate nonobstructing renal calculi bilaterally measuring up to 0.3 cm. No hydronephrosis. There is a small hiatal hernia. Musculoskeletal: Degenerative changes of the spine without suspicious osseous lesion or compression fracture. IMPRESSION: 1. Stable appearance of the subcentimeter nodules within the superior left lower lobe compared to 03/24/2020. Consider additional follow-up in 6-12 months to document longer term stability. 2. Emphysema. 3. No other acute abnormality in the chest. Dictated by: Dictated on workstation # [id number]
== END ==
LOC: RAD 16:15
PROVIDERS: ATTEND Nurse Practitioner Family
DX: J43.2 Centrilobular emphysema (principal); R91.8 Other nonspecific abnormal finding of lung field
CPT/HCPCS: 71250

== ENCOUNTER → 2021-06-07 | Outpatient (CLI) | payer MEDICAID ==
[~2021-06-07] MED LIST changes: +REGADENOSON 0.4 MG/5 ML SYR (LEXISCAN) IV ONE
[2021-06-07] MEDS: CATHETER FLUSH 10 ML SYR IV PRN ×2 (12:31→13:47)
[2021-06-07 13:45] VITALS: BP 143/90
--- NOTE | 2021-06-07 15:37 | Cardiology Stress Test Report ---
Stress Test Report Date of Procedure/Referring: Date of Procedure: Jun 07, 2021 Makayla Cha Admitting Physician [place] Indications: 89 Baseline Blood Pressure: Blood Pressure Systolic: 143 Blood Pressure Diastolic: 90 Baseline Vitals Vital Signs Date Time Temp Pulse Resp B/P (MAP) Pulse Ox O2 Delivery O2 Flow Rate FiO2 06/07/21 13:45 85 16 143/90 (107) 98 Nasal Cannula Baseline EKG: Baseline EKG: NSR Summary After explaining the procedure to the patient, she signed a consent and then brought to the stress nuclear laboratory. Patient received 0.4 mg Lexiscan for stress test, ECG, heart rate and blood pressure were monitored continuously. Resting and stress dose of radio tracer were injected, imaging was acquired and reviewed in short axis, horizontal long axis and vertical long axis views. TID: 1.1 SSS: 0 SDS: 0 EF: 71 1. Patient tolerated Lexiscan well 2. No significant ischemia or infarction on SPECT images 3. Normal left ventricular size, EF 71 DIONY SEQUEIRA MD Jun 07, 2021 15:37
== END ==
LOC: CARD 12:45
PROVIDERS: ATTEND Physician Assistant
DX: I25.10 Atherosclerotic heart disease of native coronary artery without angina pectoris (principal)
CPT/HCPCS: 78452; 93017; A9502

== ENCOUNTER → 2021-10-17 | Outpatient (CLI) | payer MEDICAID ==
[~2021-10-17] MED LIST changes: -REGADENOSON 0.4 MG/5 ML SYR (LEXISCAN) IV ONE
--- NOTE | 2021-10-17 11:48 | Diagnostic Imaging Report ---
INDICATION: Postmenopausal female COMPARISON: None FINDINGS: AP Spine L2-L4: [BMD (g/cm2): 0.750] [T-Score: -3.7] [Z-Score: -1.5] [BMD Previous: na] [BMD % Change: na] LT Hip Neck: [BMD (g/cm2): 0.664] [T-Score: -2.7] [Z-Score: -0.8] LT Hip Total: [BMD (g/cm2):0.631] [T-Score:-3.0] [Z-Score: -1.3] [BMD Previous: na] [BMD % Change: na] RT Hip Neck: [BMD (g/cm2):0.693] [T-Score:-2.5] [Z-Score:-0.6] RT Hip Total: [BMD (g/cm2):0.632] [T-score:-3.0] [Z-Score:-1.3] [BMD Previous:na] [BMD % Change:na] *Indicates significant change from prior examination based on 95% confidence level. World Health Organization criteria for BMD interpretation classify patients as Normal (T-score at or above -1.0), Osteopenic (T-score between -1.0 and -2.5) or Osteoporotic (T-score at or below -2.5). LIMITATIONS AND MODIFICATION: None. FRACTURE RISK (FRAX SCORE): The ten year probability of (%): Major Osteoporotic Fracture: [na] Hip Fracture: [na] IMPRESSION: 1. Osteoporosis. 2. Baseline examination. 3. See below National Osteoporosis Foundation guidelines on when to potentially initiate pharmacologic therapy. Based on the National Osteoporosis Foundation Guidelines, pharmacologic treatment should be initiated in any of the following, unless clinical conditions suggest otherwise: * Any patient with prior fragility fracture of the hip or vertebrae. A spine fracture indicates 5X risk for subsequent spine fracture and 2X risk for subsequent hip fracture. * Osteoporosis (T-score <-2.5). * Postmenopausal women and men age 50 and older with low bone mass/osteopenia (T-score between -1.0 and -2.5) by DXA and 10-year major osteoporotic fracture greater than 20% or a 10-year probability of hip fracture greater than 3%. These fracture risks are supplied above in the FRAX score, if applicable. * Clinician judgement and/or patient preferences may indicate treatment for people with 10-year fracture probabilities above or below these levels. Dictated by: Dictated on workstation # [id number]
== END ==
LOC: RAD 09:30
PROVIDERS: ATTEND Nurse Practitioner
DX: M81.0 Age-related osteoporosis without current pathological fracture (principal)
CPT/HCPCS: 77080

== ENCOUNTER 2022-02-21 06:16 | Outpatient (RCR) | payer MEDICAID ==
[~2022-02-21] VITALS: Ht 167.6 cm; Wt 38.4 kg
[2022-02-21] MEDS ORDERED: LISI5TAB20 PO (10:20)
[2022-02-21] MEDS ORDERED: ATOR10TA PO (10:20)
[2022-02-21] MEDS ORDERED: TIOT18CA2 IH (10:20)
[2022-02-21] MEDS ORDERED: CLOP75TA69 PO (10:20)
[2022-02-21] MEDS ORDERED: RT-ALBUINH IH (10:20)
== END 2022-03-01 09:57 | disposition home or self-care (01) ==
LOC: PREOP 06:16 → EDSTATUS 13:45 → PREOP 03-01 09:57
PROVIDERS: ATTEND Surgery
DX: Z01.818 Encounter for other preprocedural examination (principal)

== ENCOUNTER 2022-03-05 09:32 | Day surgery (SDC) | payer MEDICAID ==
[~2022-03-05] VITALS: Ht 167.6 cm; Wt 38.4 kg
[2022-03-05] VITALS (8 sets, daily range): BP systolic 55–117; BP diastolic 33–81
[~2022-03-05 09:32] MED LIST changes: +ATOR10TA PO; +CLOP75TA69 PO; +LISI5TAB20 PO; +RT-ALBUINH IH; +TIOT18CA2 IH
[2022-03-05] MEDS ORDERED: LACTATED RINGERS 1,000 ML IV STA (09:44)
[2022-03-05] MEDS ORDERED: HURRICAINE EXT TUBE (BENZOCAINE) XX PRN (09:45)
--- NOTE | 2022-03-05 10:06 | Progress Note-Pre Operative ---
Pre-Operative Progress Note Date of Available H&P: Feb 13, 2022 Date H&P Reviewed: Mar 05, 2022 Time H&P Reviewed: 10:05 History & Physical: H&P Reviewed, Patient Examed, No changes noted Pre-Operative Diagnosis: Dysphagia, Screening colonoscopy SHANICE ROCHA DO Mar 05, 2022 10:06
[2022-03-05] MEDS ORDERED: PROPOFOL INJECTION 50 ML IV ONE (10:16)
--- NOTE | 2022-03-05 11:11 | Progress Note-Post Operative ---
Post-Operative Progess Note Surgeon (s)/Hvac Service Manager (s) Surgeon SHANICE ROCHA DO Hvac Service Manager: Sayra Lester, MSIII Pre-Operative Diagnosis Dysphagia, Screening colonoscopy Post-Operative Diagnosis Gastritis Hiatal hernia Polyps diverticula int hemorrhoids Procedure & Operative Findings Date of Procedure 03/05/22 Procedure Performed/Findings EGD with bx Colonoscopy with snare polypectomy PROCEDURE NOTE: After informed consent was obtained, the patient was brought to the endoscopy suite, placed in bed in left lateral decubitus position. She was administered IV sedation by the ALMOND CUTTING MACHINE TENDER who then monitored vitals the entire time, heart rate, blood pressure and pulse ox and the scope was inserted down the mouth through the esophagus into the stomach. On the way down, noted some mild esophagitis but did not see any stricture; took a picture of the esophagitis at the GE junction. Pushed into the stomach, past the antrum and into the duodenum. Duodenum looked good. Pulled back, noted some mild gastritis and did a biopsy of antrum. Then retroflexed the scope, saw a small sliding hiatal hernia and took a picture of this. Pulled the scope into the GE junction, took another picture of the GE junction and then did a biopsy of the GE junction. Pushed the scope back into the stomach, suctioned all the air out of the stomach. At this point pulled the scope up the esophagus and out the mouth. Switched camera, switched gloves, went down below and started the colonoscopy. Pushed all the way in to about 130 cm to get all the way to cecum. Took a picture of the appendiceal orifice, noted the ileocecal valve and then slowly withdrew the scope, insufflating to look circum- ferentially at the soni starting in the cecum, up the ascending colon to the hepatic flexure, then down the transverse colon to the splenic flexure. Just into the descending colon I found a small polyp; which I removed with snare. However, then I found a larger flat polyp hiding behind a fold; removed it in 3 pieces with hot snare. Continued down into the sigmoid; where I found two more polyps. Finally into the rectum; found two more polyps removed with snare polypectomy. Retroflexed in the rectal vault, saw some minimal internal hemorrhoids and took a picture of this. The patient tolerated the procedure and she recovered in the endoscopy suite. Recommended for repeat colonoscopy in 1 year, because of large polyp removed in pieces. Anesthesia Type IV sedation by ALMOND CUTTING MACHINE TENDER Estimated Blood Loss Estimated blood loss (mL): scant Specimens/Packing Specimens Removed antral bx GE jxn bx Descending colon polyp x 2 sigmoid polyp rectal polyps SHANICE ROCHA DO Mar 05, 2022 11:11
--- NOTE | 2022-03-05 11:13 | Endoscopy Discharge Instruct ---
Endo Procedure/Findings Findings 1.: Gastritis 2.: Hiatal Hernia 3.: Polyp 4.: Diverticulosis, Internal Hemorrhoids Discharge Instructions - Activity: You might feel a little sleepy until tomorrow. This is due to the medicine you received to relax you. Until tomorrow, you should: NOT drive a car, operate machinery or power tools. NOT drink any alcoholic beverages. NOT make any important decisions or sign importortant papers. Do not return to work until tomorrow, unless otherwise instructed. Resume previous activities tomorrow. Diet: Start by taking liquids. If you tolerate liquids, advance to solid food. 1.: EGD in 3 years 2.: Colonoscopy in 1 year Notify Physician - If you experience excessive bleeding, unusual abdominal pain, fever, or chest pain, contact your doctor immediately. SHANICE ROCHA DO Mar 05, 2022 11:13
--- NOTE | 2022-03-05 11:17 | Anesthesia-General Post-Op ---
MAC Patient Condition Mental Status/LOC: Same as Preop Cardiovascular: Satisfactory Nausea/Vomiting: Absent Respiratory: Satisfactory Pain: Controlled Complications: Absent Post Op Complications Complications None Follow Up Care/Instructions Patient Instructions None needed. Anesthesiology Discharge Order Discharge Order Patient is doing well, no complaints, stable vital signs, no apparent adverse anesthesia problems. No complications reported per nursing. JESSICA HOLDER CRNA Mar 05, 2022 11:17
== END 2022-03-05 12:18 | disposition home or self-care (01) ==
LOC: ENDO 09:32
PROVIDERS: ATTEND Surgery
DX: Z12.11 Encounter for screening for malignant neoplasm of colon (principal); D12.4 Benign neoplasm of descending colon; D12.5 Benign neoplasm of sigmoid colon; K62.1 Rectal polyp; K57.30 Diverticulosis of large intestine without perforation or abscess without bleeding; K64.8 Other hemorrhoids; K44.9 Diaphragmatic hernia without obstruction or gangrene; K21.00 Gastro-esophageal reflux disease with esophagitis, without bleeding

== ENCOUNTER → 2022-12-25 | Outpatient (CLI) | payer MEDICAID ==
[~2022-12-25] MED LIST changes: +ALBU8.5H6 IH; +CLOP-31 PO; -CLOP75TA69 PO; -RT-ALBUINH IH
== END ==
LOC: CARD 13:48
PROVIDERS: ATTEND Physician Assistant
DX: I11.9 Hypertensive heart disease without heart failure (principal)
CPT/HCPCS: 93306